=== PATIENT | female | born 1990 | race Caucasian/White ===

== ENCOUNTER → 2019-11-19 14:28 | Outpatient (CLI) | payer OTHER, SELFPAY ==
[2019-11-19 16:19] LABS: HCG Quantitative /Beta subunit 999.1 mIU/mL
== END ==
PROVIDERS: Referring Provider Specialist; Visit Provider Specialist
DX: O20.0 Threatened abortion (principal)
CPT/HCPCS: 84702

== ENCOUNTER → 2019-11-22 07:02 | Outpatient (CLI) | payer OTHER, SELFPAY ==
[2019-11-22 08:17] LABS: HCG Quantitative /Beta subunit 3744.9 mIU/mL
== END ==
PROVIDERS: Referring Provider Specialist; Visit Provider Specialist
DX: O20.0 Threatened abortion (principal)
CPT/HCPCS: 36415; 84702

== ENCOUNTER → 2019-12-01 11:58 | Outpatient (CLI) | payer BC, OTHER, SELFPAY ==
[2019-12-01 13:13] LABS: Add Manual Diff / Slide Review NO; Basophils Absolute Auto 0 /uL (0-100); Basophils Percent Auto 0.4 % (0-2); Eosinophils Absolute Auto 100 /uL (0-450); Eosinophils Percent Auto 0.9 % (2-4); Hematocrit 39.2 % (36-46); Hemoglobin 13.5 g/dL (12.0-16.0); Lymphocytes Absolute Auto 1700 /uL (1100-4500); Lymphocytes Percent Auto 19.8 % (25-40); Mean Corpuscular HGB Conc 34.6 % (30-36); Mean Corpuscular Hemoglobin 29.9 PG (26-34); Mean Corpuscular Volume 86.5 fL (80-100); Monocytes Absolute Auto 600 /uL (0-900); Monocytes Percent Auto 6.9 % (3-14); Neutrophils Absolute Auto 6200 /uL (1500-7000); Platelet Count 238 X10^3/uL (150-400); Red Blood Cell Count 4.53 X10^6/uL (4.0-5.2); Red Cell Distribution Width 12.5 % (11.6-14.8); White Blood Cell Count 8.6 X10^3/uL (4.5-11.0)
[2019-12-01 14:00] LABS: Appearance Urine UA CLEAR; Bilirubin Urine UA NEGATIVE (NEGATIVE); Color Urine UA YELLOW; Glucose Urine UA NEGATIVE (Negative); Ketones Urine UA NEGATIVE (NEGATIVE); Leukocyte Esterase Urine UA NEGATIVE (NEGATIVE); Nitrite Urine UA NEGATIVE (Negative); Occult Blood Urine UA NEGATIVE (Negative); Protein Urine UA NEGATIVE (Negative); Urobilinogen Urine UA 0.2 E.U./dL (0.2)
[2019-12-01 14:04] LABS: pH Urine UA 5.5 (4.5-8.0)
[2019-12-02 04:27] LABS: RPR Screen Non Reactive (Non Reactive)
[2019-12-02 06:08] LABS: Varicella IgG Antibody 198 index (Immune >165)
[2019-12-02 16:42] LABS: Hepatitis B Surface Antigen NEGATIVE s/c (NEGATIVE); Rubella Antibody IgG 20.2 IU/mL (>15)
[2019-12-02 16:56] LABS: Hep C Virus Ab w/Reflex Quant NEGATIVE s/c (NEGATIVE)
[2019-12-02 16:57] LABS: HIV 1 & 2 Ab/Ag 4th Gen Combo NEGATIVE (NEGATIVE)
== END ==
PROVIDERS: Referring Provider Specialist; Visit Provider Specialist
DX: Z34.01 Encounter for supervision of normal first pregnancy, first trimester (principal)
CPT/HCPCS: 36415; 80055; 81003; 86787; 86803; 86850; 86900; 86901; 87086; 87389

== ENCOUNTER → 2019-12-29 11:35 | Outpatient (CLI) | payer BC, OTHER, SELFPAY ==
[2019-12-29 17:07] LABS: Urine N gonorrhoeae NOT DETECTED
[2019-12-29 17:09] LABS: Urine Chlamydia NOT DETECTED
== END ==
PROVIDERS: Visit Provider Specialist
DX: Z34.81 Encounter for supervision of other normal pregnancy, first trimester (principal)
CPT/HCPCS: 87491; 87591

== ENCOUNTER → 2020-02-03 15:16 | Outpatient (CLI) | payer OTHER, SELFPAY ==
[2020-02-07 19:04] LABS: AFP, Serum 24.7 ng/mL (.); Calc Gestational Age Ultrasound (.); Estriol, Free 1.15 ng/mL (.); Inhibin A, Dimeric 146.22 pg/mL (.); Inhibin A, MoM 0.85 (.); Maternal Ethnicity Caucasian (.); Maternal Weight 147 lbs (.); Number of Fetuses No (.); OSBR Risk 1 IN 10000 (.); Results Report (.); Test Results *Screen Negative* (.); hCG, MoM 0.75 (.); hCG, Serum 32693 mIU/mL (.)
== END ==
PROVIDERS: Referring Provider Specialist; Visit Provider Specialist
DX: Z34.02 Encounter for supervision of normal first pregnancy, second trimester (principal); Z3A.16 16 weeks gestation of pregnancy
CPT/HCPCS: 36415; 82105; 82677; 84702; 86336

== ENCOUNTER → 2020-03-02 10:34 | Outpatient (CLI) | payer OTHER, SELFPAY ==
--- NOTE | 2020-03-02 10:35 | DI.US.S_ITS ---
PROCEDURE: US OB >= 14 WEEKS FETUS INDICATIONS: ANATOMY OUTSIDE/PRIOR DATING DATA: Last menstrual period (LMP): October 14, 2019. LMP-based estimated date of delivery (KARLA): July 20, 2020. First dating scan (date and location): December 01, 2019. Estimated date of delivery (KARLA) from first dating scan: July 24, 2020. TECHNIQUE: Real-time scanning was performed of the fetus, with image documentation and biometric measurements. Endovaginal scanning: Performed COMPARISON: [facility], , OB >= 14 WEEKS FETUS, 02/23/2020, 10:50. [facility], , OB <= 14 WEEKS FETUS, 12/29/2019, 11:45. [facility], , OB <= 14 WEEKS FETUS, 12/01/2019, 12:09. FINDINGS: General: A single living intrauterine gestation is present. Presentation: Transverse with head to the maternal left Placenta: Placental position is posterior, without previa. Amniotic fluid index: 11.8 cm, normal range is 5-24 cm. heart rate: 157 beats per minute. Maternal cervical canal: 4.8 cm long. Normal lower limit is 2.5 cm biometrics: Biparietal diameter: 19 weeks 4 days Head circumference: 19 weeks 5 days Abdominal circumference: 19 weeks 5 days Femur length: 19 weeks 3 days Estimated gestational age from initial scan: 19 weeks 3 days Composite gestational age from present scan: 19 weeks 5 days Estimated weight and percentile: 304 grams; 58th percentile Measurement variability for biometric dating: +/- 7 days from 14 weeks to 15 weeks 6 days gestation, +/- 10 days from 16 weeks to 21 weeks 6 days gestation, +/- 2 weeks from 22 weeks to 27 weeks 6 days gestation, +/- 3 weeks for 28 weeks gestation or later. weight reference: 4500 g or EFW >90/95% is considered macrosomia or large for gestational age. EFW <10% is small for gestational age. EFW 5% or less is considered intra-uterine growth restriction. Anatomic survey: Neuro: Ventricles are non-dilated at less than 10 mm. Cisterna magna is normal at 3-11 mm. Cerebellum is normal in size and morphology. Nuchal skin fold: Normal at less than 6 mm between 14-21 weeks gestational age. Face: Nose and lips, facial profile are normal. Spine: No evidence for spina bifida. Heart: 4-chambered heart is present, with normal right ventricular outflow tract. Left ventricular outflow tract is not well visualized. Diaphragm: Diaphragm is intact. Stomach: Left-sided stomach is present. Kidneys: No hydronephrosis. Normal is less than 5 mm in 2nd trimester, less than 7 mm in 3rd trimester. Cord: 3-vessel cord has orthotopic insertion. Bladder: Normal in size. Extremities: All 4 extremities identified. IMPRESSION: 1. Single living intrauterine with appropriate interval growth. 2. Suboptimal visualization of the left ventricular outflow tract which cannot be evaluated. Otherwise, normal anatomic survey. Dictated by: Perri La MD, PhD on 03/02/2020 at 12:47 Approved by: Perri La MD, PhD on 03/02/2020 at 12:51
== END ==
PROVIDERS: Referring Provider Specialist; Visit Provider Specialist
DX: Z34.02 Encounter for supervision of normal first pregnancy, second trimester (principal); Z3A.19 19 weeks gestation of pregnancy
CPT/HCPCS: 76811

== ENCOUNTER → 2020-04-10 09:32 | Outpatient (CLI) | payer OTHER, SELFPAY ==
[2020-04-10 11:10] LABS: Hematocrit 32.9 % (36-46); Hemoglobin 11.2 g/dL (12.0-16.0)
[2020-04-10 11:30] LABS: GTT (PREG) 1 Hour PP 50gm Dose 134 mg/dL (76-139)
== END ==
PROVIDERS: PCP Specialist; Referring Provider Specialist; Visit Provider Specialist
DX: Z34.82 Encounter for supervision of other normal pregnancy, second trimester (principal)
CPT/HCPCS: 36415; 82950; 85014; 85018

== ENCOUNTER 2020-05-16 13:50 | Emergency (ER) | payer OTHER, SELFPAY ==
[2020-05-16] VITALS (9 sets, daily range): BP systolic 120–149; BP diastolic 63–90; PULSE 85–113; RESP 22–27; TEMP 36.8; O2SAT 96–100
--- NOTE | 2020-05-16 14:16 | DI.CT.S_ITS ---
PROCEDURE: CT HEAD/BRAIN WO CON INDICATIONS: Code stroke RIGHT FACIAL DROOP TECHNIQUE: Noncontrast 4.5 mm thick angled axial sections acquired from the foramen magnum to the vertex, with coronal and sagittal reformats. For radiation dose reduction, the following was used: automated exposure control, adjustment of mA and/or kV according to patient size. COMPARISON: None. FINDINGS: Image quality: Excellent. CSF spaces: Basal cisterns are patent. No extra-axial fluid collections. Ventricles are normal in size and shape. Brain: No midline shift. No intracranial masses or hemorrhage. Van-white matter interface is normal. Skull and face: Calvarium and visualized facial bones are intact, without suspicious lesions. Sinuses: Visualized sinuses and mastoids are clear. IMPRESSION: Normal examination, no contraindication to administration of tPA. Findings immediately called to the emergency room physician caring for the patient, at 2:33 p.m. Dictated by: Carlos Ribera M.D. on 05/16/2020 at 14:34 Approved by: Carlos Ribera M.D. on 05/16/2020 at 14:35
--- NOTE | 2020-05-16 14:19 | ED_ITS ---
HPI - General Adult General Chief complaint: Neuro Symptoms/Deficit Stated complaint: 30 WKS NUMBNESS LEFT SIDE OF FACE Time Seen by Provider: 05/16/20 14:06 Source: patient Mode of arrival: Ambulatory Limitations: no limitations History of Present Illness HPI narrative: Patient is a 29-year-old female. at 30 weeks EGA without any abdominal urinary or complaints here for evaluation of tingling to the right side of her face. She states that the symptoms started approximately 2 hours ago. She states she was eating some yogurt when she noticed that she was having a hard time tasting on the right side of her face and also getting the spoon into her mouth. Last evening had right ear pain but that seems to have improved if not resolved. Her family member stated that it looked like she was drooping on the right side of her face and so she came to the emergency department. Code stroke was called secondary to the findings. Related Data Home Medications Medication Instructions Recorded Confirmed prenat.vits,jacoby,[id number] 1 tab PO DAILY 11/19/19 05/08/20 labetalol 100 mg tablet 100 mg PO BID 11/30/19 05/08/20 Previous Rx's Medication Instructions Recorded prednisone 60 mg PO DAILY 7 Days #21 tab 05/16/20 valacyclovir 1,000 mg PO TID 7 Days #21 tab 05/16/20 Allergies Allergy/AdvReac Type Severity Reaction Status Date / Time No Known Drug Allergies Allergy Verified 05/08/20 10:55 Review of Systems Constitutional Constitutional: Denies body ache(s), Denies chills, Denies fatigue, Denies fever(s), Denies frequent falls, Denies headache(s), Denies malaise and Denies weakness Eyes Eyes: Denies blurry vision, Denies change in vision and Denies diplopia ENT Ears, Nose, Mouth, and Throat: Denies vertigo, Denies dizziness, Denies dry mouth, Denies headache(s) and Denies sore throat Comments: Right-sided ear pain last night Cardiovascular Cardiovascular: Denies chest pain, Denies rapid heart rate, Denies irregular heart rhythm and Denies dyspnea Respiratory Respiratory: Denies cough and Denies dyspnea Gastrointestinal Gastrointestinal: Denies abdominal pain, Denies nausea and Denies vomiting Genitourinary Genitourinary: Denies urinary hesitancy, Denies urinary incontinence and Denies urinary urgency Genitourinary: Denies urinary incontinence, Denies urinary hesitancy, Denies urinary urgency and Denies vaginal discharge Musculoskeletal Musculoskeletal: Denies abnormal gait, Denies arthralgias, Denies back pain, Denies myalgias and Reports tingling (Right-sided face) Integumentary/Breasts Skin/Breast: Denies lesions and Denies rash Neurologic Neurologic: Denies abnormal speech, Denies abnormal gait, Denies burning sens ations, Denies confusion, Denies vertigo, Denies dizziness, Denies frequent falls, Denies headache(s), Denies lack of coordination, Reports localized weakness (Right-sided face), Reports tingling (Right-sided face) and Denies weakness Psychiatric Psychiatric: Denies anxiety, Denies confusion and Denies depression Endocrine Endocrine: Denies fatigue Hematologic/Lymphatic Hematologic/Lymphatic: Denies easy bleeding and Denies easy bruising Allergic/Immunologic Allergic/Immunologic: Denies urticaria Patient History Medical History Chicken pox (Resolved ~1994) Migraine (Acute) Surgical History (Updated 11/30/19 @ 10:33 by Leora Ceballos RN) [place] teeth extracted (Acute) Family History (Updated 11/30/19 @ 20:40 by Joyce Reyes) Father Stroke Hypertension Aorta aneurysm Mother No problems noted. 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 Smoking Status: Never smoker second hand exposure: No alcohol intake: former (pre- : occasional) substance use type: does not use Smoking Status: Never smoker Exam Initial Vital Signs Initial Vital Signs: Vital Signs Temperature 98.2 F 05/16/20 14:00 Pulse Rate 113 H 05/16/20 14:00 Respiratory Rate 22 05/16/20 14:00 Blood Pressure 149/90 H 05/16/20 14:00 Pulse Oximetry 100 05/16/20 14:00 Const General: cooperative, comfortable and well developed Limitations: mental status not altered HENMT Head: normal to inspection and normocephalic Ears: TM's normal bilaterally Nose: external nose normal Face and sinus: normal facial exam Eyes Pupils: PERRL Resp Effort & Inspection: normal respiratory effort Auscultation: clear to auscultation bilaterally Cardio Rate: tachycardic Rhythm: regular rhythm Pulses: radial pulses present GI Palpation: No tender Other: Gravid abdomen Skin Lesions: no lesions Rashes: no rashes Neuro General: patient alert, patient awake and patient oriented x3 Cognition: normal cognition Speech: speech normal Gait: normal gait Sensory Exam: no sensory deficits noted Coordination: [id number] test normal Extrem General: normal to inspection and capillary refill normal Psych Appearance: grossly normal and well kempt Scores GCS Melani coma scale eye opening: Spontaneous Melani coma scale verbal response: Orientated Melani coma scale motor response: Obey commands Melani coma scale total score: 15 NIH Stroke Scale Level of Conciousness: Alert, keenly responsive Ask month/age: Answers both questions correctly. Open/close eyes, close hand: Performs both tasks correctly Best gaze horizontal: Normal Visual xavier: No visual loss Facial palsy: Complete paralysis, absence of movement in the upper and lower face Left arm drift: No drift for full 10 sec Right arm drift: No drift for full 10 sec Left leg drift: No drift for full 5 sec Right leg drift: No drift for full 5 sec Limb ataxia: Absent Sensory on face/arms/legs: Normal, no sensory loss Best language: No aphasia, normal Dysarthria: Normal Extinction or inattention: No abnormality Total NIH Stroke scale score: 3 Course Orders Ordered: ED Orders 05/16/20 14:05 Basic Metabolic Panel Stat Complete Blood Count AUTO DIFF Stat 05/16/20 14:16 CT head/brain wo con Stat 05/16/20 14:33 EKG-12 Lead Stat 05/16/20 15:20 Urinalysis and Microscopic Stat 05/16/20 15:26 Lactate Dehydrogenase Stat Uric Acid Stat 05/16/20 17:02 Protein Creatinine Ratio Urine Stat Vital Signs Vital signs: Vital Signs - 8 hr 05/16/20 14:00 05/16/20 14:31 05/16/20 15:00 Temperature 98.2 F Pulse Rate 113 H 101 H 93 H Respiratory Rate 22 27 H 24 Blood Pressure 149/90 H 146/90 H Pulse Oximetry 100 97 96 05/16/20 15:18 05/16/20 15:19 05/16/20 15:50 Temperature Pulse Rate 101 H 101 H 98 H Respiratory Rate 24 22 Blood Pressure 130/72 Pulse Oximetry 97 96 97 05/16/20 15:52 05/16/20 16:00 05/16/20 16:30 Temperature Pulse Rate 96 H 93 H 85 Respiratory Rate Blood Pressure 124/63 125/64 120/71 Pulse Oximetry 96 97 97 Medical Decision Making Lab Data Lab results reviewed: Yes I reviewed the patient's lab results. Result diagrams: 05/16/20 14:05 05/16/20 14:05 Labs: Lab Results 05/16/20 05/16/20 05/16/20 Range/Units 14:05 14:05 15:26 WBC 8.2 (4.5-11.0) X10^3/uL RBC 3.92 L (4.0-5.2) X10^6/uL Hgb 11.5 L (12.0-16.0) g/dL Hct 33.3 L (36-46) % MCV 85.0 (80-100) fL MCH 29.3 (26-34) PG MCHC 34.4 (30-36) % RDW 13.4 (11.6-14.8) % Plt Count 216 (150-400) X10^3/uL Neut % (Auto) 74.9 (50-75) % Lymph % (Auto) 19.7 L (25-40) % [place] % (Auto) 4.7 (3-14) % Eos % (Auto) 0.4 L (2-4) % Baso % (Auto) 0.3 (0-2) % Neut # (Auto) 6200 (7562-9994) /uL Lymph # (Auto) 1600 (4083-2028) /uL [place] # (Auto) 400 (0-900) /uL Eos # (Auto) 0 (0-450) /uL Baso # (Auto) 0 (0-100) /uL Sodium 135 L (137-145) mmol/L Potassium 3.8 (3.4-5.1) mmol/L Chloride 107 (98-107) mmol/L Carbon Dioxide 22 (22-32) mmol/L BUN 11 (7-17) mg/dL Creatinine 0.44 L (0.52-1.04) mg/dL Estimated GFR > 60.0 (>60) mL/min BUN/Creatinine Ratio 25.0 H (6-22) Glucose 116 H (70-100) mg/dL Uric Acid (2.5-6.2) mg/dL Calcium 9.8 (8.4-10.2) mg/dL Lactate Dehydrogenase 332 (313-618) U/L U Random Total Protein (0-12) mg/dL Urine Creatinine mg/dL Protein/Creatinin Ratio GRAM/24H 05/16/20 05/16/20 Range/Units 15:26 17:02 WBC (4.5-11.0) X10^3/uL RBC (4.0-5.2) X10^6/uL Hgb (12.0-16.0) g/dL Hct (36-46) % MCV (80-100) fL MCH (26-34) PG MCHC (30-36) % RDW (11.6-14.8) % Plt Count (150-400) X10^3/uL Neut % (Auto) (50-75) % Lymph % (Auto) (25-40) % [place] % (Auto) (3-14) % Eos % (Auto) (2-4) % Baso % (Auto) (0-2) % Neut # (Auto) (0587-9890) /uL Lymph # (Auto) (5234-5305) /uL [place] # (Auto) (0-900) /uL Eos # (Auto) (0-450) /uL Baso # (Auto) (0-100) /uL Sodium (137-145) mmol/L Potassium (3.4-5.1) mmol/L Chloride (98-107) mmol/L Carbon Dioxide (22-32) mmol/L BUN (7-17) mg/dL Creatinine (0.52-1.04) mg/dL Estimated GFR (>60) mL/min BUN/Creatinine Ratio (6-22) Glucose (70-100) mg/dL Uric Acid 3.9 (2.5-6.2) mg/dL Calcium (8.4-10.2) mg/dL Lactate Dehydrogenase (313-618) U/L U Random Total Protein 17 H (0-12) mg/dL Urine Creatinine 18.4 mg/dL Protein/Creatinin Ratio 0.92 GRAM/24H Imaging Data CT scan - head: Radiologist's Impression: [address] [address] [address] Scan Report Signed Patient: Yumiko Carlin PMR#: [id number] : 1990Acct:[id number] Age/Sex: 29 / FDate of Service: 05/16/20 Loc: ED Accession Number: [id number] Procedure: CT head/brain wo con Ordering Provider: Fausto Oliver D.O. PROCEDURE: CT HEAD/BRAIN WO CON INDICATIONS: Code stroke RIGHT FACIAL DROOP TECHNIQUE: Noncontrast 4.5 mm thick angled axial sections acquired from the foramen magnum to the vertex, with coronal and sagittal reformats. For radiation dose reduction, the following was used: automated exposure control, adjustment of mA and/or kV according to patient size. COMPARISON: None. FINDINGS: Image quality: Excellent. CSF spaces: Basal cisterns are patent. No extra-axial fluid collections. Ventricles are normal in size and shape. Brain: No midline shift. No intracranial masses or hemorrhage. Van-white matter interface is normal. Skull and face: Calvarium and visualized facial bones are intact, without suspicious lesions. Sinuses: Visualized sinuses and mastoids are clear. IMPRESSION: Normal examination, no contraindication to administration of tPA. Findings immediately called to the emergency room physician caring for the justin jackson, at 2:33 p.m. Dictated by: Carlos Ribera M.D. on 05/16/2020 at 14:34 Approved by: Carlos Ribera M.D. on 05/16/2020 at 14:35 ECG Data Attestation: I personally reviewed and interpreted this ECG as follows: Prior ECG tracings: not available for review Interpretation: Sinus rhythm Ventricular rate of 97 Normal axis Normal QRS Normal QTC No ST T wave changes MDM Narrative Medical decision making narrative: Do a strong suspicion that the patient's symptoms are related to Elliott's palsy and not a CVA. During her time here in the emergency department her symptoms did seem to improve somewhat however she was still having some problems closing the right eye and also puffing out the right side of her cheek. I did discuss the case with Dr. callejas who is on-call for Ob who recommended starting the patient on steroids as well as the acyclovir. Patient already has a follow-up the attending of next week with her OB provider. Patient's blood pressure was elevated upon arrival with this did improve a suspected this was related to the situation and not preeclampsia. Patient is already on labetalol. She has already had her glucose test. Patient was given return precautions and follow-up instructions. She expressed understanding and agreement. Discharge Plan Departure Patient Disposition: Home Clinical Impression: Elliott's palsy Discharge Date/Time: 05/16/20 17:43 Instructions: Prednisolone Improves Recovery From Elliott's Palsy, Elliott's Palsy (Alternative Therapy), Elliott Palsy Activity Restrictions/Additional Instructions: Recommend you continue all of your medications as directed and keep all of your scheduled medical appointments. Prescriptions were electronically transmitted to [facility]. Recommend you take them as directed. Return to the emergency department for any new or worsening symptoms Prescriptions: New prednisone 20 mg tablet 60 mg PO DAILY 7 Days Qty: 21 RF: 0 valacyclovir 1 gram tablet 1,000 mg PO TID 7 Days Qty: 21 RF: 0 No Action prenat.vits,jacoby,[id number] Tablet 1 tab PO DAILY RF: 0 labetalol 100 mg tablet 100 mg PO BID RF: 0 Referrals: Naomy Perkins MD [Primary Care Provider] -
[2020-05-16 15:13] LABS: Add Manual Diff / Slide Review NO; Basophils Absolute Auto 0 /uL (0-100); Basophils Percent Auto 0.3 % (0-2); Eosinophils Absolute Auto 0 /uL (0-450); Eosinophils Percent Auto 0.4 % (2-4); Hematocrit 33.3 % (36-46); Hemoglobin 11.5 g/dL (12.0-16.0); Lymphocytes Absolute Auto 1600 /uL (1100-4500); Lymphocytes Percent Auto 19.7 % (25-40); Mean Corpuscular HGB Conc 34.4 % (30-36); Mean Corpuscular Hemoglobin 29.3 PG (26-34); Monocytes Absolute Auto 400 /uL (0-900); Monocytes Percent Auto 4.7 % (3-14); Neutrophils Absolute Auto 6200 /uL (1500-7000); Neutrophils Percent Auto 74.9 % (50-75); Platelet Count 216 X10^3/uL (150-400); Red Blood Cell Count 3.92 X10^6/uL (4.0-5.2); Red Cell Distribution Width 13.4 % (11.6-14.8); White Blood Cell Count 8.2 X10^3/uL (4.5-11.0)
[2020-05-16 15:27] LABS: Blood Urea Nitrogen 11 mg/dL (7-17); Calcium 9.8 mg/dL (8.4-10.2); Carbon Dioxide 22 mmol/L (22-32); Chloride 107 mmol/L (98-107); Estimated Glomerular Filt Rate > 60.0 mL/min (>60); Glucose 116 mg/dL (70-100); HEMOLYSIS < 15 (0-50); Potassium 3.8 mmol/L (3.4-5.1); Sodium 135 mmol/L (137-145)
[2020-05-16 15:43] LABS: Lactate Dehydrogenase 332 U/L (313-618)
[2020-05-16 15:44] LABS: Uric Acid 3.9 mg/dL (2.5-6.2)
[2020-05-16 17:23] LABS: Creatinine Urine Random 18.4 mg/dL; Protein (Total) Urine Random 17 mg/dL (0-12); Protein Creatinine Ratio Urine 0.92 GRAM/24H
== END 2020-05-16 17:43 | disposition home or self-care (01) ==
PROVIDERS: Obstetrics & Gynecology; Emergency Provider Emergency Medicine; PCP Specialist
DX: G51.0 Bell's palsy (principal); H92.01 Otalgia, right ear; R07.9 Chest pain, unspecified
CPT/HCPCS: 36415; 70450; 80048; 82570; 83615; 84156; 84550; 85025; 93005; 93010; 99284

== ENCOUNTER 2020-05-17 14:23 | Outpatient (CLI) | payer OTHER, SELFPAY ==
--- NOTE | 2020-05-18 07:02 | PM.OBTRLD ---
Visit Information Visit Information Date of evaluation: 05/17/20 Primary OB Provider: Naomy Perkins On-call OB Provider: Olimpia Ray Reason for Evaluation: Yes non-stress test non-stress test reason: other (Elliott's Palsy) [facility] Medical History (Updated 05/16/20 @ 17:36 by Fausto Oliver DO) Chicken pox (Resolved ~1994) Migraine (Acute) Surgical History (Updated 11/30/19 @ 10:33 by Leora Ceballos RN) [place] teeth extracted (Acute) Family History (Updated 11/30/19 @ 20:40 by Joyce Reyes) Father Stroke Hypertension Aorta aneurysm Mother No problems noted. 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 Perkins in 5 days [facility]'s OB Disposition: home
== END 2020-05-17 15:25 | disposition home or self-care (01) ==
LOC: LABOR 15:03 → OB 05-18 14:49
PROVIDERS: Referring Provider Obstetrics & Gynecology; Visit Provider Obstetrics & Gynecology
DX: O26.893 Other specified pregnancy related conditions, third trimester (principal); G51.0 Bell's palsy; Z3A.30 30 weeks gestation of pregnancy
CPT/HCPCS: 59025; G0378; G0379

== ENCOUNTER → 2020-06-26 08:54 | Outpatient (CLI) | payer OTHER, SELFPAY ==
[2020-06-27 09:00] LABS: Strep Grp B PCR NEG for Grp B Strep
== END ==
PROVIDERS: Visit Provider Specialist
DX: Z34.03 Encounter for supervision of normal first pregnancy, third trimester (principal); Z3A.36 36 weeks gestation of pregnancy
CPT/HCPCS: 87653

== ENCOUNTER 2020-07-03 11:07 | Outpatient (CLI) | payer OTHER, SELFPAY ==
--- NOTE | 2020-07-03 11:42 | PM.OBTRLD ---
Visit Information Visit Information Date of evaluation: 07/03/20 Primary OB Provider: Naomy Perkins Reason for Evaluation: Yes non-stress test non-stress test reason: hypertension/pre-eclampsia Comments/Additional reasons for admission: Chronic hypertension on labetalol Vital Signs Vital Signs: Blood pressure 120/77, pulse 98, temperature 36.6? [facility] Medical History (Updated 07/03/20 @ 11:43 by Naomy Perkins MD) Chicken pox (~1994) Migraine Surgical History (Updated 11/30/19 @ 10:33 by Leora Ceballos RN) [place] teeth extracted Family History (Updated 11/30/19 @ 20:40 by Joyce Reyes) Father Stroke Hypertension Aorta aneurysm Mother No problems noted. 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 OB Disposition: home
== END 2020-07-03 11:50 | disposition home or self-care (01) ==
LOC: OB 07-04 09:28
PROVIDERS: Referring Provider Specialist; Visit Provider Specialist
DX: O10.913 Unspecified pre-existing hypertension complicating pregnancy, third trimester (principal); Z3A.37 37 weeks gestation of pregnancy
CPT/HCPCS: 59025; G0378; G0379

== ENCOUNTER 2020-07-10 10:02 | Outpatient (CLI) | payer OTHER, SELFPAY ==
--- NOTE | 2020-07-10 12:55 | P.TNLD_ITS ---
Visit Information Visit Information Date of evaluation: 07/10/20 Primary OB Provider: Naomy Perkins Reason for Evaluation: Yes non-stress test non-stress test reason: hypertension/pre-eclampsia [facility] Medical History (Updated 07/03/20 @ 11:43 by Naomy Perkins MD) Chicken pox (~1994) Migraine Surgical History (Updated 11/30/19 @ 10:33 by Leora Ceballos RN) [place] teeth extracted Family History (Updated 11/30/19 @ 20:40 by Joyce Reyes) Father Stroke Hypertension Aorta aneurysm Mother No problems noted. 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
== END 2020-07-10 11:25 | disposition home or self-care (01) ==
LOC: LABOR 10:36 → OB 15:41
PROVIDERS: Referring Provider Specialist; Visit Provider Specialist
DX: O10.913 Unspecified pre-existing hypertension complicating pregnancy, third trimester (principal); Z3A.38 38 weeks gestation of pregnancy
CPT/HCPCS: 59025; G0378; G0379

== ENCOUNTER 2020-07-17 10:39 | Outpatient (CLI) | payer OTHER, SELFPAY | END 2020-07-17 11:16 | disposition home or self-care (01) | LOC: LABOR 11:07 → OB 07-18 09:12 | PROVIDERS: Referring Provider Specialist; Visit Provider Specialist | DX: O24.419 Gestational diabetes mellitus in pregnancy, unspecified control (principal); Z3A.39 39 weeks gestation of pregnancy | CPT/HCPCS: 59025; G0378; G0379 ==

== ENCOUNTER 2020-07-18 10:51 | Observation (INO) | payer OTHER, SELFPAY ==
--- NOTE | 2020-07-18 13:07 | P.TNLD_ITS ---
Visit Information Visit Information Date of evaluation: 07/18/20 Primary OB Provider: Naomy Perkins On-call OB Provider: Carmencita Castillo Reason for Evaluation: Yes non-stress test Comments/Additional reasons for admission: Patient is a @39+5 presenting for r/o PROM with since gush of more mucus than normal. Rare ctx, +FM, no VB, no PIH complaints. Vital Signs Vital Signs: 122/83, HR 102 PFSH Medical History Chicken pox (~1994) Migraine Surgical History [place] teeth extracted Family History Father Stroke Hypertension Aorta aneurysm Mother No problems noted. 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 OB Disposition: home
== END 2020-07-18 13:18 | disposition home or self-care (01) ==
PROVIDERS: Admitting Provider Specialist; Referring Provider Specialist; Visit Provider Specialist
DX: O13.3 Gestational [pregnancy-induced] hypertension without significant proteinuria, third trimester (principal); N89.8 Other specified noninflammatory disorders of vagina; Z3A.39 39 weeks gestation of pregnancy
CPT/HCPCS: 59025; 59050; 84112; G0378; G0379

== ENCOUNTER 2020-07-22 09:57 | Outpatient (CLI) | payer OTHER, SELFPAY ==
--- NOTE | 2020-07-22 10:46 | P.TNLD_ITS ---
Visit Information Visit Information Date of evaluation: 07/22/20 Primary OB Provider: Naomy Perkins Reason for Evaluation: Yes non-stress test non-stress test reason: hypertension/pre-eclampsia Vital Signs Vital Signs: Blood pressure 115/69, temperature 36.3?, pulse 93 PFSH Medical History (Updated 07/22/20 @ 10:47 by Naomy Perkins MD) Chicken pox (~1994) Migraine Surgical History [place] teeth extracted Family History Father Stroke Hypertension Aorta aneurysm Mother No problems noted. 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 Follow-up in 5 days. OB Disposition: home
== END 2020-07-22 11:07 | disposition home or self-care (01) ==
LOC: OB 07-24 12:05
PROVIDERS: Referring Provider Specialist; Visit Provider Specialist
DX: O48.0 Post-term pregnancy (principal); O10.913 Unspecified pre-existing hypertension complicating pregnancy, third trimester; Z3A.40 40 weeks gestation of pregnancy
CPT/HCPCS: 59025; G0378; G0379

== ENCOUNTER 2020-07-25 10:23 | Observation (INO) | payer OTHER, SELFPAY ==
--- NOTE | 2020-07-25 11:54 | DI.US.S_ITS ---
PROCEDURE: US OB BIOPHYSICAL PROFILE INDICATIONS: DECREASED MOVEMENT OUTSIDE/PRIOR DATING DATA: Last menstrual period (LMP): 10/14/19. LMP-based estimated date of delivery (KARLA): 07/20/20 . First dating scan (date and location): 12/01/19 Estimated date of delivery (KARLA) from first dating scan: 07/24/20 . TECHNIQUE: Real-time scanning was performed of the fetus for biophysical profile, with image documentation. Color and pulse Doppler interrogation was also performed of the umbilical artery near its insertion into the placenta. Endovaginal scanning: Not performed COMPARISON: [facility], , US OB >= 14 WEEKS FETUS, 07/17/2020, 10:33. [facility], US OB >= 14 WEEKS FETUS, 07/10/2020, 9:50. [facility], US OB >= 14 WEEKS FETUS, 07/03/2020, 10:49. [facility], OB >= 14 WEEKS FETUS, 04/24/2020, 11:12. [facility], US OB >= 14 WEEKS FETUS, 03/02/2020, 11:02. [facility], US OB >= 14 WEEKS FETUS, 02/23/2020, 10:50. [facility], US OB <= 14 WEEKS FETUS, 12/29/2019, 11:45. [facility], US OB <= 14 WEEKS FETUS, 12/01/2019, 12:09. FINDINGS: General: A single living intrauterine gestation is present. Presentation: Vertex. Placenta: Placental position is anterior/left , without previa. Amniotic fluid index: 8.5 cm, normal range is 5-24 cm. Largest pocket measures 3.4 cm heart rate: 140 beats per minute. Estimated gestational age from initial scan: 40 weeks 1 day . Biophysical profile: Tone: 2 points. Movement: 2 points. Respiration: 2 points. Largest pocket of fluid: 2 points. IMPRESSION: Single living intrauterine fetus in vertex presentation Biophysical profile 03/04 as above Normal KRISTAN Dictated by: Terrence Aiken M.D. on 07/25/2020 at 14:15 Approved by: Terrence Aiken M.D. on 07/25/2020 at 14:17
--- NOTE | 2020-07-25 13:09 | PM.OBTRLD ---
Visit Information Visit Information Date of evaluation: 07/25/20 Primary OB Provider: Naomy Perkins On-call OB Provider: Carmencita Castillo Reason for Evaluation: Yes non-stress test Comments/Additional reasons for admission: This patient is a 30-year-old at 40 weeks 5 days with chronic hypertension well managed on p.o. labetalol, presenting to rule out labor. Patient has a contractions as often as every 5 minutes overnight, some mucousy bloody show, decreased movement that has now resolved, no loss of fluid. No PIH complaints. Vital Signs Vital Signs: 120s/80s, HR 80s-90s PFSH Medical History Chicken pox (~1994) Migraine Surgical History [place] teeth extracted Family History Father Stroke Hypertension Aorta aneurysm Mother No problems noted. 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 Smoking Status: Never smoker second hand exposure: No alcohol intake: former (pre- : occasional) substance use type: does not use Review of Systems Constitutional Constitutional: Reports system reviewed and no additional complaints, except as documented Evaluation Evaluation Baseline heart rate: 140 Variability: Moderate (11-25) monitor accelerations: Present monitor decelerations: Absent Contraction Frequency (minutes): 7 Category of Tracing: Reactive Status: Category l Cervical dilation (cm): 1 Cervical effacement (%): 70 station: -2 (Posterior, mild mucousy bloody show) Diagnosis, Plan/Disposition Plan/Disposition Plan: Patient is status post 8 BPP, reassuring status, patient in latent labor. Precautions discussed, patient offered recheck in 2 hours versus discharge home with expectant management, opted for discharge home. Precautions stressed, patient has scheduled follow-up tomorrow with primary provider. OB Disposition: home
== END 2020-07-25 13:15 | disposition home or self-care (01) ==
PROVIDERS: Admitting Provider Specialist; Referring Provider Specialist; Visit Provider Specialist
DX: O48.0 Post-term pregnancy (principal); O10.913 Unspecified pre-existing hypertension complicating pregnancy, third trimester; Z3A.40 40 weeks gestation of pregnancy
CPT/HCPCS: 59025; 59050; 76819; G0378; G0379

== ENCOUNTER 2020-07-26 00:27 | Observation (INO) | payer OTHER, SELFPAY ==
[2020-07-26] MEDS: MORPHINE 4 MG/ML INJ 5 MG IM (03:05)
[2020-07-26] MEDS: ZOLPIDEM 5 MG TABLET PO (03:06)
== END 2020-07-26 03:14 | disposition home or self-care (01) ==
PROVIDERS: Admitting Provider Obstetrics & Gynecology; Referring Provider Specialist; Visit Provider Obstetrics & Gynecology
DX: O48.0 Post-term pregnancy (principal); Z3A.40 40 weeks gestation of pregnancy
CPT/HCPCS: 59025; 96372; G0378; G0379; J2270

== ENCOUNTER 2020-07-26 06:23 | Inpatient (IN) | payer OTHER, SELFPAY ==
[2020-07-26] MEDS: ONDANSETRON 4 MG/2 ML INJ IV (06:50)
[2020-07-26] MEDS: MORPHINE 10 MG/ML INJ 5 MG IV (06:50)
[2020-07-26] MEDS: FENT 2MCG/ML BUPIV 0.125% EPI 200 MCG/100 ML PLAST..BAG 8 MCG EPIDURAL (08:05)
[2020-07-26] MEDS: LACTATED RINGERS 1,000 ML 100 ML IV ×3 (08:10→19:27)
[2020-07-26 08:20] LABS: Add Manual Diff / Slide Review NO; Basophils Absolute Auto 0 /uL (0-100); Basophils Percent Auto 0.3 % (0-2); Eosinophils Absolute Auto 0 /uL (0-450); Eosinophils Percent Auto 0.1 % (2-4); Hematocrit 36.6 % (36-46); Hemoglobin 12.2 g/dL (12.0-16.0); Lymphocytes Absolute Auto 1500 /uL (1100-4500); Mean Corpuscular HGB Conc 33.5 % (30-36); Mean Corpuscular Hemoglobin 28.5 PG (26-34); Mean Corpuscular Volume 85.1 fL (80-100); Monocytes Absolute Auto 500 /uL (0-900); Monocytes Percent Auto 4.6 % (3-14); Neutrophils Absolute Auto 8600 /uL (1500-7000); Platelet Count 140 X10^3/uL (150-400); Red Cell Distribution Width 14.3 % (11.6-14.8); White Blood Cell Count 10.6 X10^3/uL (4.5-11.0)
[2020-07-26 08:23] LABS: COVID19 -Nasal RAPID Negative (Negative)
--- NOTE | 2020-07-26 09:22 | PM.OBHP.1 ---
OB HPI Date/Time Date of admission: 07/26/20 Date Patient Seen: 07/26/20 Time Patient Seen: 09:23 History of Present Condition Chief complaint: NST : 1 Para: 0 Estimated Date of Delivery: 07/20/20 Estimated Gestational Age (weeks): 40 Narrative: Yumiko Carlin is a 30 year old female admitted in early labor History of Present care: good care, initiated at week # (6), number of visits (15) and pounds weight gain (27) Dating criteria: LMP confirmed by 1st trimester US Ultrasounds: normal mid trimester US Medical complications: cardiovascular (Chronic hypertension well controlled throughout the ) Preadmission Labs Blood type: B (+) positive -: Antibody screen: negative, GBS status: negative, HBsAG: negative, HIV: negative and RPR/VDLR: negative -: Chlamydia screen: not detected and Gonorrhea screen: not detected -: Rubella: immune and Varicella: immune HCAB: negative Quad screen: Normal 1 hr GTT: 134 Evaluation Evaluation Baseline heart rate: 130 Variability: Moderate (11-25) monitor accelerations: Present monitor decelerations: Absent Contraction Frequency (minutes): 2 Uterine Contraction Intensity: Strong/Firm Category of Tracing: Reactive Cervical dilation (cm): 1 Cervical effacement (%): 100 station: 0 Laboratory results: Laboratory Tests 07/26/20 07/26/20 07/26/20 06:20 06:20 06:40 WBC 10.6 RBC 4.30 Hgb 12.2 Hct 36.6 MCV 85.1 MCH 28.5 MCHC 33.5 RDW 14.3 Plt Count 140 L Neut % (Auto) 81.0 H Lymph % (Auto) 14.0 L [place] % (Auto) 4.6 Eos % (Auto) 0.1 L Baso % (Auto) 0.3 Neut # (Auto) 8600 H Lymph # (Auto) 1500 [place] # (Auto) 500 Eos # (Auto) 0 Baso # (Auto) 0 COVID-19 PCR Negative Blood Type B Positive Antibody Screen Negative PFSH Medical History Chicken pox (~1994) Migraine Surgical History [place] teeth extracted Family History Father Stroke Hypertension Aorta aneurysm Mother No problems noted. 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 Good movement. No leakage of fluid. ROS: Yes All systems reviewed with the patient and are negative except as otherwise documented Exam Vital Signs (past 8 hours): Blood pressure 121/74, pulse 109, temperature 36.5? Narrative Exam Narrative: HEENT exam within normal limits. Lungs are clear to auscultation percussion. Heart is regular rate and rhythm no S3-S4 murmurs. Abdomen is gravid. Fetus is vertex. Extremities without edema and nontender. Objective Labs Result Diagrams: 07/26/20 06:20 Labs: Laboratory Results - last 24 hr 07/26/20 07/26/20 07/26/20 06:20 06:20 06:40 WBC 10.6 RBC 4.30 Hgb 12.2 Hct 36.6 MCV 85.1 MCH 28.5 MCHC 33.5 RDW 14.3 Plt Count 140 L Neut % (Auto) 81.0 H Lymph % (Auto) 14.0 L [place] % (Auto) 4.6 Eos % (Auto) 0.1 L Baso % (Auto) 0.3 Neut # (Auto) 8600 H Lymph # (Auto) 1500 [place] # (Auto) 500 Eos # (Auto) 0 Baso # (Auto) 0 COVID-19 PCR Negative Blood Type B Positive Antibody Screen Negative Assessment and Plan Assessment and Plan Assessment and Plan narrative: 40 week gestation admitted in early labor. Patient is getting an epidural for pain control.
[2020-07-26 10:20] VITALS: BP 156/79
[2020-07-26] MEDS: OXYTOCIN PREMIX 30 UNIT/500 ML PLAST..BAG IV (15:29)
[2020-07-26 20:50] VITALS: BP 177/94; PULSE 115
[2020-07-26] MEDS: LABETALOL 100 MG TABLET PO (20:50)
[2020-07-26 20:51] VITALS: TEMP 38.7
[2020-07-26] MEDS: ACETAMINOPHEN 325 MG TABLET 650 MG PO (20:51)
--- NOTE | 2020-07-26 22:14 | PM.OBPRVD ---
Events: Labor Augmentation Labor & Delivery Delivery date: 07/26/20 Intrapartal events: Febrile (To 100.7 the last hour of pushing) Delivery augmentation: pitocin Delivery monitor: external FHT, external uterine and internal uterine Route of delivery: L&D Laceration Description: Vaginal - 1st Degree and Labial (Right labial minora first-degree) Delivery repair: chromic (3 0 and 4 0) Estimated blood loss (mL): 150 Anesthesia Type: Epidural Narrative: Patient arrived on Labor and delivery in active labor. She received an epidural catheter for pain control. She had slower progress in labor so she was begun on Pitocin augmentation. A internal toco was placed to document contraction strength. Pitocin was increased to a total of 7 milliunits. The patient became complete and pushing. The patient's temperature gradually increased to 100.7. She was given p.o. Tylenol. heart tones category 1 to category 2 throughout labor. Patient had a spontaneous delivery over an intact perineum. The viable female infant was placed on maternal abdomen. After the cord stopped pulsating the cord was clamped, cut, and cord bloods obtained. The placenta delivered spontaneously, intact, with 3 vessels. There were no cervical tears. A first-degree vaginal tear was repaired with 3 0 chromic suture. A right labial tear was repaired with 4-0 chromic suture. Both mother doing well. [place] Baby 1: gender: Female Presentation: vertex Position: Left Occiput Posterior Placenta delivery description: Spontaneous Cord Vessel Description: 3 Vessels score (1 min): 8 score (5 min): 9 Plan for aftercare: Routine care
[2020-07-26] MEDS: LANOLIN OINT 7 GM 1 APPLIC TOP (23:53)
[2020-07-26] MEDS: DERMOPLAST SPRAY 20% 60 ML 1 SPRAY TOP (23:53)
[2020-07-27] MEDS: IBUPROFEN 600 MG TABLET PO ×3 (00:29→13:43)
[2020-07-27 06:39] LABS: Add Manual Diff / Slide Review NO; Basophils Absolute Auto 100 /uL (0-100); Basophils Percent Auto 0.4 % (0-2); Eosinophils Absolute Auto 0 /uL (0-450); Eosinophils Percent Auto 0.1 % (2-4); Hematocrit 31.7 % (36-46); Hemoglobin 10.5 g/dL (12.0-16.0); Lymphocytes Absolute Auto 1800 /uL (1100-4500); Lymphocytes Percent Auto 10.7 % (25-40); Mean Corpuscular HGB Conc 33.2 % (30-36); Mean Corpuscular Hemoglobin 28.7 PG (26-34); Mean Corpuscular Volume 86.4 fL (80-100); Monocytes Absolute Auto 1000 /uL (0-900); Monocytes Percent Auto 6.1 % (3-14); Neutrophils Absolute Auto 14100 /uL (1500-7000); Neutrophils Percent Auto 82.7 % (50-75); Platelet Count 120 X10^3/uL (150-400); Red Blood Cell Count 3.67 X10^6/uL (4.0-5.2); Red Cell Distribution Width 14.9 % (11.6-14.8)
[2020-07-27 07:52] VITALS: BP 148/89
[2020-07-27] MEDS: ACETAMINOPHEN 325 MG TABLET 650 MG PO (07:52)
[2020-07-27] MEDS: LABETALOL 100 MG TABLET PO (07:52)
--- NOTE | 2020-07-27 13:35 | PM.OBDS.1 ---
Discharge Providers Provider Date of admission: 07/26/20 06:23 Discharge Date: 07/27/20 Consults: 07/26/20 07:33 Consult to Anesthesiology Urgent Comment: Consulting Provider: Anesthesiologist Reason for consultation: Epidural Has provider been notified: No 07/27/20 22:12 Consult to Plant Sciences Professor Routine Comment: Discharge provider: Naomy Perkins MD Summary Hospital Course Date Patient Seen: 07/27/20 Time Patient Seen: 13:36 Procedures: Epidural catheter, Pitocin augmentation of labor, spontaneous vaginal delivery, repair of first-degree vaginal and labial tear Hospital Course: Patient arrived on Labor and delivery in early labor. She received an epidural catheter for pain control. She had a spontaneous vaginal delivery with first-degree vaginal and labial tear repairs. Patient denies headaches, scotomata, epigastric pain. Patient is urinating and ambulating well. No pain. Bleeding is appropriate. Patient is requesting early discharge. Peripartum Data Delivery Method: Natural Vaginal Laceration Description: Vaginal - 1st Degree and Labial (Right) Procedures: Epidural catheter, Pitocin augmentation of labor, spontaneous vaginal delivery, repair of first-degree vaginal and labial tears complications: none [place] 1: Gender: Female Disposition of : home Discharge Diagnosis (1) Vaginal delivery: Status: Acute (2) Chronic hypertension: Status: Acute Status at Discharge Cognitive/behavioral status at discharge: oriented Functional status at discharge: independent ambulation Overall status at discharge: patient is progressing back to baseline Time Spent with Patient Time attestation: Total time spent providing and/or coordinating discharge services: Time spent: Less than 30 minutes Objective Labs Result Diagrams: 07/27/20 06:22 Labs: Laboratory Results - last 24 hr 07/27/20 06:22 WBC 17.0 H D RBC 3.67 L Hgb 10.5 L Hct 31.7 L MCV 86.4 MCH 28.7 MCHC 33.2 RDW 14.9 H Plt Count 120 L Neut % (Auto) 82.7 H Lymph % (Auto) 10.7 L [place] % (Auto) 6.1 Eos % (Auto) 0.1 L Baso % (Auto) 0.4 Neut # (Auto) 74707 H Lymph # (Auto) 1800 [place] # (Auto) 1000 H Eos # (Auto) 0 Baso # (Auto) 100 Exam Vital Signs (past 8 hours): Temperature 97.4?, pulse of 91, 1 elevated blood pressure at 148/89,-repeat 131/85 07/27/20 07:52 Blood Pressure 148/89 H Narrative Exam Narrative: Abdomen is soft, nontender. Uterus is firm, at U, nontender. Mild lochia. Extremities with trace edema and nontender. Patient is Rh positive, rubella immune, received the Tdap in the 3rd trimester. Discharge Plan Discharge Plan Patient Disposition: Home Discharge orders & Medications Prescriptions: Continued prenat.vits,jacoby,[id number]-heeqa Tablet 1 tab PO DAILY RF: 0 labetalol 100 mg tablet 100 mg PO BID Qty: 60 RF: 3 Follow up/Referrals: Naomy Perkins MD [Physician] - (please follow up w/ Dr. Perkins on , @ 11am for your appt.) Diet/Activity/Treatments Diet: Regular Activity: Nothing in vagina for 6 weeks Skin/Wound/Dressing Care Report to your healthcare provider any signs of infection, such as:: chills, fever and increased pain Visit Report/Discharge Packet Stand Alone Forms: Discharge: Care
[2020-07-27 14:26] VITALS: BP 135/81; PULSE 91; TEMP 36.3
== END 2020-07-27 16:39 | disposition home or self-care (01) | DRG 807 ==
PROVIDERS: Specialist; Admitting Provider Obstetrics & Gynecology; Referring Provider Obstetrics & Gynecology; Visit Provider Obstetrics & Gynecology
DX: O10.92 Unspecified pre-existing hypertension complicating childbirth (principal); Z37.0 Single live birth; Z3A.40 40 weeks gestation of pregnancy; O48.0 Post-term pregnancy; O70.0 First degree perineal laceration during delivery; Z20.828 Contact with and (suspected) exposure to other viral communicable diseases
CPT/HCPCS: 01967; 36415; 59025; 59050; 59400; 76815; 85025; 86850; 86900; 86901; 87635; 96372; G0378; G0379; J2270; J2405; J2590

== ENCOUNTER → 2020-11-02 12:09 | Outpatient (CLI) | payer OTHER, SELFPAY ==
[2020-11-02] MEDS: COVID-19 VACC, Ad26(JANSSEN)/PF 0.5 ML IM (12:26)
== END ==
PROVIDERS: Visit Provider Internal Medicine
DX: Z23 Encounter for immunization (principal)
CPT/HCPCS: 0031A; 91303

== ENCOUNTER → 2021-03-05 11:34 | Outpatient (CLI) | payer OTHER, SELFPAY ==
[2021-03-05 12:03] LABS: Add Manual Diff / Slide Review NO; Basophils Absolute Auto 0 /uL (0-100); Basophils Percent Auto 0.5 % (0-2); Eosinophils Absolute Auto 100 /uL (0-450); Hemoglobin 14.4 g/dL (12.0-16.0); Lymphocytes Absolute Auto 2100 /uL (1100-4500); Lymphocytes Percent Auto 24.3 % (25-40); Mean Corpuscular HGB Conc 34.4 % (30-36); Mean Corpuscular Hemoglobin 29.6 PG (26-34); Mean Corpuscular Volume 85.9 fL (80-100); Monocytes Absolute Auto 500 /uL (0-900); Monocytes Percent Auto 5.9 % (3-14); Neutrophils Absolute Auto 5800 /uL (1500-7000); Neutrophils Percent Auto 68.3 % (50-75); Platelet Count 235 X10^3/uL (150-400); Red Blood Cell Count 4.89 X10^6/uL (4.0-5.2); Red Cell Distribution Width 12.3 % (11.6-14.8); White Blood Cell Count 8.5 X10^3/uL (4.5-11.0)
[2021-03-05 12:15] LABS: Alanine Aminotransferase 14 IU/L (<35); Albumin 4.5 g/dL (3.5-5.0); Albumin Globulin Ratio 1.2 (1.0-2.8); Alkaline Phosphatase 86 U/L (38-126); Aspartate Aminotransferase 22 IU/L (14-36); BUN Creatinine Ratio 23.6 (6-22); Bilirubin Total 0.4 mg/dL (0.2-1.3); Blood Urea Nitrogen 13 mg/dL (7-17); Calcium 9.9 mg/dL (8.4-10.2); Carbon Dioxide 24 mmol/L (22-32); Chloride 106 mmol/L (98-107); Estimated Glomerular Filt Rate > 60.0 mL/min (>60); Globulin 3.9 g/dL (1.7-4.1); Glucose 92 mg/dL (70-100); HEMOLYSIS < 15 (0-50); Potassium 4.1 mmol/L (3.4-5.1); Sodium 138 mmol/L (137-145); Total Protein 8.4 g/dL (6.3-8.2)
== END ==
PROVIDERS: PCP Registered Nurse; Referring Provider Registered Nurse; Visit Provider Registered Nurse
DX: I10 Essential (primary) hypertension (principal); Z79.899 Other long term (current) drug therapy; G43.909 Migraine, unspecified, not intractable, without status migrainosus
CPT/HCPCS: 36415; 80053; 85025

== ENCOUNTER → 2021-05-28 12:40 | Outpatient (CLI) | payer OTHER, SELFPAY ==
--- NOTE | 2021-05-28 12:42 | DI.US.S_ITS ---
PROCEDURE: US OB <= 14 WK FETUS ADD GEST INDICATIONS: DATING OUTSIDE/PRIOR DATING DATA: Last menstrual period (LMP): 04/03/2021. LMP-based estimated date of delivery (KARLA): 01/08/2022. First dating scan (date and location): This exam. Estimated date of delivery (KARLA) from first dating scan: 01/14/2022. TECHNIQUE: Real-time scanning was performed of the fetuses and maternal pelvic organs, with image documentation. Endovaginal scanning: Performed for better visualization of the fetuses and maternal adnexal structures. COMPARISON: None. FINDINGS: General: An intrauterine diamniotic dichorionic twin is present, as evidenced by separate placental sites and/or intervening membrane thickness of greater than 2 mm at this early gestational age. Embryo A: There is pole with positive heart tone. A normal yolk sac is noted. Heart rate: 126 BPM. Embryo B: Gestational sac only. No pole or yolk sac. Heart rate: n/a. Measurement variability in dating: +/- 4 weeks by LMP, +/- 7 days by mean sac diameter (use before 6 weeks gestation if crown-rump length unable to be measured), +/- 5 days by crown-rump length (up to 8 weeks 6 days gestation), +/- 7 days by crown-rump length (up to 13 weeks 6 days gestation). Maternal organs: There is a corpus luteal cyst in the right ovary. Ovaries are otherwise normal. IMPRESSION: 1. There is a diamniotic dichorionic twin 2 gestational sacs. 2. There is a pole and heart tone in twin A with the estimated gestational age 7 weeks 0 day corresponding to ultrasound KARLA 01/14/2022. 2. No pole is identified in twin B. The estimated gestational age is 6 weeks 3 days based on the mean gestational sac dimension. The ultrasound findings concerning for blighted ovum. Recommend close imaging follow-up as clinically indicated. Dictated by: Becky Holden M.D. on 05/28/2021 at 14:04 Approved by: Becky Holden M.D. on 05/28/2021 at 14:16
== END ==
PROVIDERS: PCP Registered Nurse; Referring Provider Obstetrics & Gynecology; Visit Provider Obstetrics & Gynecology
DX: O30.041 Twin pregnancy, dichorionic/diamniotic, first trimester; O34.81 Maternal care for other abnormalities of pelvic organs, first trimester; N83.11 Corpus luteum cyst of right ovary; Z3A.01 Less than 8 weeks gestation of pregnancy
CPT/HCPCS: 76801; 76802; 76817

== ENCOUNTER → 2021-06-15 07:02 | Outpatient (CLI) | payer OTHER, SELFPAY ==
--- NOTE | 2021-06-15 07:03 | DI.US.S_ITS ---
PROCEDURE: OB <= 14 WEEKS FETUS INDICATIONS: VANISHING TWIN OUTSIDE/PRIOR DATING DATA: Last menstrual period (LMP): 04/13/2021. LMP-based estimated date of delivery (KARLA): 01/08/2022. First dating scan (date and location): 05/28/2022. Estimated date of delivery (KARLA) from first dating scan: 01/14/2022. TECHNIQUE: Real-time scanning was performed of the fetus and maternal pelvic organs, with image documentation. Endovaginal scanning was also performed to better visualize the fetus and maternal ovaries. COMPARISON: [facility], , OB <= 14 WK FETUS ADD GEST, 05/28/2021, 12:56. FINDINGS: Embryo: 2.8 cm, corresponding to gestational age 9 weeks 4 days Heart rate: 163 bpm The yolk sac is seen. Small perigestational hemorrhage measuring 3.9 x 1.4 x 1.1 cm, estimated volume of 3 cc. No twin demonstrated. Measurement variability in dating: +/- 4 weeks by LMP, +/- 7 days by mean sac diameter (use before 6 weeks gestation if crown-rump length not able to be measured), +/- 5 days by crown-rump length (up to 8 weeks 6 days gestation), +/- 7 days by crown-rump length (up to 13 weeks 6 days gestation). Maternal organs: Right corpus luteum. Left ovary is not seen. IMPRESSION: 1. [place] living intrauterine at 9 weeks 4 days based on today's crown rump length. heart rate 163 bpm. 2. Small perigestational hemorrhage. No twin demonstrated. Dictated by: Tyshawn Roldan M.D. on 06/15/2021 at 8:48 Approved by: Tyshawn Roldan M.D. on 06/15/2021 at 8:54
[2021-06-15 08:16] LABS: Appearance Urine UA CLEAR; Bilirubin Urine UA NEGATIVE (NEGATIVE); Color Urine UA YELLOW; Glucose Urine UA NEGATIVE (Negative); Ketones Urine UA NEGATIVE (NEGATIVE); Leukocyte Esterase Urine UA NEGATIVE (NEGATIVE); Nitrite Urine UA NEGATIVE (Negative); Occult Blood Urine UA NEGATIVE (Negative); Protein Urine UA NEGATIVE (Negative); Specific Gravity Urine UA <=1.005 (1.000-1.035); Urobilinogen Urine UA 0.2 E.U./dL (0.2)
[2021-06-15 08:36] LABS: Add Manual Diff / Slide Review NO; Basophils Absolute Auto 0 /uL (0-100); Basophils Percent Auto 0.6 % (0-2); Eosinophils Absolute Auto 0 /uL (0-450); Eosinophils Percent Auto 0.8 % (2-4); Hemoglobin 13.3 g/dL (12.0-16.0); Lymphocytes Absolute Auto 1600 /uL (1100-4500); Lymphocytes Percent Auto 26.1 % (25-40); Mean Corpuscular HGB Conc 34.1 % (30-36); Mean Corpuscular Hemoglobin 28.9 PG (26-34); Mean Corpuscular Volume 84.7 fL (80-100); Monocytes Absolute Auto 400 /uL (0-900); Monocytes Percent Auto 7.1 % (3-14); Neutrophils Absolute Auto 4100 /uL (1500-7000); Neutrophils Percent Auto 65.4 % (50-75); Platelet Count 217 X10^3/uL (150-400); Red Blood Cell Count 4.61 X10^6/uL (4.0-5.2); Red Cell Distribution Width 13.5 % (11.6-14.8); White Blood Cell Count 6.3 X10^3/uL (4.5-11.0)
[2021-06-15 09:20] LABS: Hepatitis B Surface Antigen NEGATIVE s/c (NEGATIVE); Rubella Antibody IgG 16.1 IU/mL (>15)
[2021-06-15 09:35] LABS: HIV 1 & 2 Ab/Ag 4th Gen Combo NEGATIVE (NEGATIVE); Hep C Virus Ab w/Reflex Quant NEGATIVE s/c (NEGATIVE)
[2021-06-16 07:11] LABS: RPR Screen Non Reactive (Non Reactive)
[2021-06-16 08:09] LABS: Varicella IgG Antibody 187 index (Immune >165)
== END ==
PROVIDERS: PCP Registered Nurse; Referring Provider Obstetrics & Gynecology; Visit Provider Obstetrics & Gynecology
DX: O46.8X1 Other antepartum hemorrhage, first trimester; O34.81 Maternal care for other abnormalities of pelvic organs, first trimester; N83.11 Corpus luteum cyst of right ovary; Z3A.09 9 weeks gestation of pregnancy
CPT/HCPCS: 36415; 76801; 76817; 80055; 81003; 86787; 86803; 86850; 86900; 86901; 87086; 87389

== ENCOUNTER → 2021-08-13 10:01 | Outpatient (CLI) | payer OTHER, SELFPAY ==
[2021-08-15 21:44] LABS: Calc Gestational Age Ultrasound (.); Estriol, Free 2.01 ng/mL (.); Inhibin A, Dimeric 94.09 pg/mL (.); Maternal Ethnicity Caucasian (.); Maternal Weight 155 lbs (.); Number of Fetuses No (.); OSBR Risk 1 IN 10000 (.); Results Report (.); Test Results *Screen Negative* (.); hCG, Serum 11559 mIU/mL (.)
== END ==
PROVIDERS: PCP Registered Nurse; Referring Provider Obstetrics & Gynecology; Visit Provider Obstetrics & Gynecology
DX: Z34.82 Encounter for supervision of other normal pregnancy, second trimester (principal); Z3A.18 18 weeks gestation of pregnancy
CPT/HCPCS: 36415; 82105; 82677; 84702; 86336

== ENCOUNTER → 2021-09-06 09:00 | Outpatient (CLI) | payer OTHER, SELFPAY ==
--- NOTE | 2021-09-06 09:01 | DI.US.S_ITS ---
PROCEDURE: US OB >= 14 WEEKS FETUS INDICATIONS: ANATOMY OUTSIDE/PRIOR DATING DATA: Last menstrual period (LMP): 04/13/2021 LMP-based estimated date of delivery (KARLA): 01/08/2022 First dating scan (date and location): 05/28/2022 at [facility] Estimated date of delivery (KARLA) from first dating scan: 01/14/2022 The calculations are made using the ultrasound KARLA of 01/14/2022 TECHNIQUE: Real-time scanning was performed of the fetus, with image documentation and biometric measurements. Endovaginal scanning: Not performed. COMPARISON: [facility], US, US OB >= 14 WEEKS FETUS, 08/13/2021, 10:00. FINDINGS: General: A single living intrauterine gestation is present. Presentation: Variable Placenta: Placental position is posterior, without previa. Amniotic fluid index: 12.8 cm, normal range is 5-24 cm. Single deepest vertical pocket is 4.4 cm. heart rate: 153 beats per minute. Maternal cervical canal: 7 cm long, although contraction of the lower uterine segment may be present and included in the measurement. biometrics: Biparietal diameter: 5.0 cm, 21 weeks 1 day Head circumference: 19.5 cm, 21 weeks 5 days Abdominal circumference: 16.6 cm, 21 weeks 4 days Femur length: 3.8 cm, 22 weeks 1 day Clinically estimated gestational age: 21 weeks 3 days Composite gestational age from present scan: 21 weeks 5 days Estimated weight and percentile: 449 g, 63rd percentile Anatomic survey: Neuro: Ventricles are non-dilated at less than 10 mm. Cisterna magna is normal at 3-11 mm. Cerebellum is normal in size and morphology. Nuchal skin fold: Normal at less than 6 mm between 14-21 weeks gestational age. Face: Nose and lips, facial profile are normal. Spine: No evidence for spina bifida. Heart: 4-chambered heart is present, with normal ventricular outflow tracts. Diaphragm: Diaphragm is intact. Stomach: Left-sided stomach is present. Kidneys: The renal pelvises appear mildly prominent bilaterally, measuring 6 mm in diameter on the right and 4 mm on the left however. The right renal pelvis is partially obscured by acoustic shadowing related to the spine. Normal is less than 5 mm in 2nd trimester, less than 7 mm in 3rd trimester. Cord: 3-vessel cord has orthotopic insertion. Bladder: Normal in size. Extremities: All 4 extremities identified. IMPRESSION: 1. Single live intrauterine with appropriate interval growth. 2. Mild prominence of the renal pelvises, measuring 6 mm on the right and 4 mm on the left. Recommend attention on follow-up exams. 3. Otherwise, normal anatomic survey. We strive to produce accurate, complete, and clear reports of imaging services. To assist us in improving patient care, this report was composed using standard report templates and voice recognition software. Therefore, it may contain abnormal punctuation, insertions and/or omissions. Occasional wrong-word or sound-alike substitutions may occur. Though we review the report and make efforts to correct it, we do recommend that the report be read carefully in proper context to recognize any text inaccuracies. Dictated by: Carlos Sullivan M.D. on 09/06/2021 at 12:33 Approved by: Carlos Sullivan M.D. on 09/06/2021 at 12:41
== END ==
PROVIDERS: PCP Registered Nurse; Referring Provider Obstetrics & Gynecology; Visit Provider Obstetrics & Gynecology
DX: Z34.82 Encounter for supervision of other normal pregnancy, second trimester (principal); Z3A.21 21 weeks gestation of pregnancy
CPT/HCPCS: 76811

== ENCOUNTER → 2021-09-10 08:41 | Outpatient (CLI) | payer OTHER, SELFPAY ==
[2021-09-10 13:16] LABS: Urine N gonorrhoeae NOT DETECTED
[2021-09-10 13:49] LABS: Urine Chlamydia NOT DETECTED
== END ==
PROVIDERS: PCP Registered Nurse; Visit Provider Obstetrics & Gynecology
DX: Z34.82 Encounter for supervision of other normal pregnancy, second trimester (principal); Z3A.22 22 weeks gestation of pregnancy
CPT/HCPCS: 87491; 87591

== ENCOUNTER → 2021-10-05 09:33 | Outpatient (CLI) | payer OTHER, SELFPAY ==
[2021-10-05 12:48] LABS: Hematocrit 32.9 % (36-46); Hemoglobin 11.1 g/dL (12.0-16.0)
[2021-10-08 10:16] LABS: GTT (PREG) 1 Hour PP 50gm Dose 106 mg/dL (76-139)
== END ==
PROVIDERS: PCP Registered Nurse; Referring Provider Obstetrics & Gynecology; Visit Provider Obstetrics & Gynecology
DX: Z34.82 Encounter for supervision of other normal pregnancy, second trimester (principal); Z3A.25 25 weeks gestation of pregnancy
CPT/HCPCS: 36415; 82950; 85014; 85018

== ENCOUNTER 2021-11-13 08:35 | Outpatient (CLI) | payer OTHER, SELFPAY ==
[2021-11-13 09:40] LABS: Add Manual Diff / Slide Review NO; Basophils Absolute Auto 0 /uL (0-100); Basophils Percent Auto 0.5 % (0-2); Eosinophils Absolute Auto 100 /uL (0-450); Eosinophils Percent Auto 0.9 % (2-4); Hematocrit 29.6 % (36-46); Lymphocytes Absolute Auto 1500 /uL (1100-4500); Lymphocytes Percent Auto 17.9 % (25-40); Mean Corpuscular HGB Conc 33.9 % (30-36); Mean Corpuscular Hemoglobin 27.3 PG (26-34); Mean Corpuscular Volume 80.5 fL (80-100); Monocytes Absolute Auto 500 /uL (0-900); Neutrophils Absolute Auto 6100 /uL (1500-7000); Neutrophils Percent Auto 74.7 % (50-75); Platelet Count 175 X10^3/uL (150-400); Red Blood Cell Count 3.68 X10^6/uL (4.0-5.2); Red Cell Distribution Width 13.5 % (11.6-14.8); White Blood Cell Count 8.2 X10^3/uL (4.5-11.0)
[2021-11-13 09:51] LABS: Aspartate Aminotransferase 18 IU/L (14-36); BUN Creatinine Ratio 8.3 (6-22); Blood Urea Nitrogen 6 mg/dL (7-17); Estimated Glomerular Filt Rate > 60 mL/min (>60); Uric Acid 4.1 mg/dL (2.5-6.2)
[2021-11-13 10:48] LABS: Creatinine Urine Random 74.3 mg/dL; Protein (Total) Urine Random 5 mg/dL (0-12); Protein Creatinine Ratio Urine 0.06 GRAM/24H
[2021-11-13 13:54] LABS: Protein (Total) Urine Random 5 mg/dL (0-12)
== END 2021-11-13 10:35 | disposition home or self-care (01) ==
LOC: LABOR 09:08 → OB 11-15 07:25
PROVIDERS: PCP Registered Nurse; Referring Provider Obstetrics & Gynecology; Visit Provider Obstetrics & Gynecology
DX: O13.3 Gestational [pregnancy-induced] hypertension without significant proteinuria, third trimester (principal); Z3A.31 31 weeks gestation of pregnancy
CPT/HCPCS: 36415; 59025; 82570; 84156; 84450; 84550; 85025; G0378; G0379

== ENCOUNTER 2021-11-19 13:59 | Outpatient (CLI) | payer OTHER, SELFPAY | END 2021-11-19 14:30 | disposition home or self-care (01) | LOC: LABOR 14:23 → OB 11-20 07:29 | PROVIDERS: Referring Provider Obstetrics & Gynecology; Visit Provider Obstetrics & Gynecology | DX: O13.3 Gestational [pregnancy-induced] hypertension without significant proteinuria, third trimester (principal); Z3A.32 32 weeks gestation of pregnancy | CPT/HCPCS: 59025; G0378; G0379 ==

== ENCOUNTER 2021-11-24 08:01 | Outpatient (CLI) | payer OTHER, SELFPAY ==
--- NOTE | 2021-11-24 08:37 | PM.OBTRLD ---
Visit Information Visit Information Date of evaluation: 11/24/21 Primary OB Provider: Olimpia Ray On-call OB Provider: Soraida Helm Reason for Evaluation: Yes non-stress test non-stress test reason: hypertension/pre-eclampsia Comments/Additional reasons for admission: 31-year-old at 32 weeks and 5 days gestation with chronic hypertension here for NST. She has no complaints. She is taking labetalol as prescribed. Vital Signs Vital Signs: Blood pressure 119/64 heart rate 89 [facility] Medical History (Updated 11/24/21 @ 08:39 by Soraida Helm DO) Elliott's palsy affecting (~2019) Bleeding in early (~2019) Chicken pox (~1994) Medication management Migraine Vaginal delivery (~07/26/20) Surgical History [place] teeth extracted Family History Father Stroke Hypertension Aorta aneurysm Mother No problems noted. 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 sherman/mormon: [place] special sherman needs: No seatbelt use: always do you feel safe at home: Yes Smoking Status: Never smoker second hand exposure: No alcohol intake: former (pre- : occasional) substance use type: does not use during the past year weight has: remained stable well-balanced diet: about half the time (food aversions currently.) daily servings fruits/ve-1 caffeine: Yes (Tea: aware of limit.) Type(s) of exercise: walking (Daily walks when it's nice out. ) and regular exercise ([employer], treadmill.) frequency: 3-4 times per week duration: 30-45 minutes/day Evaluation Evaluation Baseline heart rate: 140 Variability: Moderate (11-25) monitor accelerations: Present Monitor Decelerations: Absent Category of Tracing: Reactive Diagnosis, Plan/Disposition Final Diagnosis (1) 32 weeks gestation of : Status: Acute (2) Chronic hypertension: Status: Acute Plan/Disposition Plan: 31-year-old at 32 weeks and 5 days gestation. complicated by chronic hypertension well controlled with labetalol. NST reactive today. Follow-up in clinic as scheduled return sooner if needed. OB Disposition: home
== END 2021-11-24 08:40 | disposition home or self-care (01) ==
LOC: LABOR 08:49 → OB 11-27 06:37
PROVIDERS: PCP Obstetrics & Gynecology; Referring Provider Obstetrics & Gynecology; Visit Provider Obstetrics & Gynecology
DX: O10.913 Unspecified pre-existing hypertension complicating pregnancy, third trimester (principal); Z3A.32 32 weeks gestation of pregnancy
CPT/HCPCS: 59025; G0378; G0379

== ENCOUNTER 2021-12-01 19:07 | Emergency (ER) | payer OTHER, SELFPAY ==
[2021-12-01] VITALS (12 sets, daily range): BP systolic 91–105; BP diastolic 50–57; PULSE 128–145; RESP 20–28; TEMP 37.4–37.6; O2SAT 95–97; BMI 29.2
--- NOTE | 2021-12-01 19:31 | ED_ITS ---
HPI - General Adult General Chief complaint: Fever Stated complaint: 33 weeks preg with covid Time Seen by Provider: 12/01/21 19:12 Source: patient Mode of arrival: Ambulatory Limitations: no limitations History of Present Illness HPI narrative: Patient is a 31-year-old female. at 33 weeks EGA who is here for evaluation of decreased activity, fatigue, cough and fever. Patient did test this morning for COVID and she was positive. She is vaccinated. She had the Jorge and Jorge vaccine approximately 1 year ago. has been uncomplicated up to this point. She is not having any current vaginal bleeding or vaginal discharge. She did take Tylenol approximately 6 hours ago. Related Data Home Medications Medication Instructions Recorded Confirmed prenat.vits,jacoby,[id number] 1 tab PO DAILY 11/19/19 11/19/21 diphenhydramine HCl 50 mg capsule 50 mg PO BEDTIME 06/06/21 11/19/21 (Unisom SleepGels) pyridoxine (vitamin B6) 50 mg 50 mg PO ONCE 06/06/21 11/19/21 tablet Previous Rx's Medication Instructions Recorded labetalol 100 mg tablet 100 mg PO BID #180 tab 11/22/21 Allergies Allergy/AdvReac Type Severity Reaction Status Date / Time No Known Drug Allergies Allergy Verified 11/19/21 14:46 Review of Systems Constitutional Constitutional: Reports chills, Reports fatigue, Reports fever(s) and Reports lethargy Cardiovascular Cardiovascular: Denies chest pain Respiratory Respiratory: Reports cough Gastrointestinal Gastrointestinal: Denies abdominal pain, Denies cramping, Denies diarrhea, Denies nausea and Denies vomiting Comments: Decreased activity the Genitourinary Genitourinary: Denies dysuria Musculoskeletal Musculoskeletal: Reports system reviewed and no additional complaints, except as documented Integumentary/Breasts Skin/Breast: Reports system reviewed and no additional complaints, except as documented Neurologic Neurologic: Reports system reviewed and no additional complaints, except as documented Endocrine Endocrine: Reports fatigue Hematologic/Lymphatic On Anticoagulants: No Patient History Medical History Elliott's palsy affecting (~2019) Bleeding in early (~2019) Chicken pox (~1994) Medication management Migraine Vaginal delivery (~07/26/20) Surgical History [place] teeth extracted Family History Father Stroke Hypertension Aorta aneurysm Mother No problems noted. 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 ) and regular exercise (Peloton, treadmill.) frequency: 3-4 times per week duration: 30-45 minutes/day Smoking Status: Never smoker Exam Initial Vital Signs Initial Vital Signs: Vital Signs Temperature 99.6 F 12/01/21 19:15 Pulse Rate 143 H 12/01/21 19:15 Respiratory Rate 28 H 12/01/21 19:15 Blood Pressure 93/55 L 12/01/21 19:15 Pulse Oximetry 97 12/01/21 19:15 HENMT Head: normal to inspection and normocephalic Resp Effort & Inspection: normal respiratory effort Auscultation: clear to auscultation bilaterally Cardio Rate: regular rate Rhythm: regular rhythm GI Other: Gravid abdomen. Skin General: no rashes or lesions noted Neuro General: patient alert, patient awake and moves all extremities Extrem General: normal to inspection Psych Appearance: grossly normal Course Orders Ordered: ED Orders 12/01/21 19:34 Basic Metabolic Panel Stat Complete Blood Count AUTO DIFF Stat Hepatic (Liver) Panel Stat LDH [Lactate Dehydrogenase] Stat Uric Acid Stat 12/01/21 21:14 Protein Creatinine Ratio Urine Stat Urinalysis and Microscopic Stat Urine Culture Stat 12/01/21 21:33 US OB biophysical profile Stat Discontinued Medications Acetaminophen (Acetaminophen 325 Mg Tablet) 975 mg PO NOW ONE Stop: 12/01/21 19:32 Last Admin: 12/01/21 20:08 Dose: 975 mg Documented by: RUPERTO Sodium Chloride (Normal Saline 0.9%) 1,000 mls @ 1,000 mls/hr IV BOLUS ONE Stop: 12/01/21 20:24 Last Infusion: 12/01/21 21:24 Dose: 0 mls/hr Documented by: Admin: 12/01/21 20:07 Dose: 1,000 mls/hr Documented by: RUPERTO Vital Signs Vital signs: Vital Signs - 8 hr 12/01/21 19:15 12/01/21 19:24 12/01/21 19:30 Temperature 99.6 F Pulse Rate 143 H 145 H 133 H Respiratory Rate 28 H Blood Pressure 93/55 L Pulse Oximetry 97 97 96 12/01/21 19:34 12/01/21 20:00 12/01/21 20:30 Temperature Pulse Rate 136 H 131 H 131 H Respiratory Rate Blood Pressure 105/55 L 104/57 L 97/52 L Pulse Oximetry 96 96 96 12/01/21 21:00 12/01/21 21:09 12/01/21 21:20 Temperature 99.4 F Pulse Rate 134 H 137 H Respiratory Rate 20 Blood Pressure 92/51 L 91/50 L Pulse Oximetry 95 95 12/01/21 21:30 12/01/21 22:00 12/01/21 22:30 Temperature Pulse Rate 135 H 136 H 128 H Respiratory Rate 20 Blood Pressure 97/55 L 104/55 L 99/53 L Pulse Oximetry 96 95 96 Medical Decision Making Lab Data Lab results reviewed: Yes I reviewed the patient's lab results. Result diagrams: 12/01/21 19:34 12/01/21 19:34 Labs: Lab Results 12/01/21 12/01/21 12/01/21 Range/Units 19:34 19:34 19:34 WBC 7.4 (4.5-11.0) X10^3/uL RBC 3.57 L (4.0-5.2) X10^6/uL Hgb 9.5 L (12.0-16.0) g/dL Hct 28.4 L (36-46) % MCV 79.6 L (80-100) fL MCH 26.6 (26-34) PG MCHC 33.4 (30-36) % RDW 14.6 (11.6-14.8) % Plt Count 139 L (150-400) X10^3/uL Neut % (Auto) 90.6 H (50-75) % Lymph % (Auto) 2.6 L (25-40) % Polk % (Auto) 6.3 (3-14) % Eos % (Auto) 0.3 L (2-4) % Baso % (Auto) 0.2 (0-2) % Neut # (Auto) 6700 (4872-3570) /uL Lymph # (Auto) 200 L (0816-3150) /uL Polk # (Auto) 500 (0-900) /uL Eos # (Auto) 0 (0-450) /uL Baso # (Auto) 0 (0-100) /uL Sodium 133 L (137-145) mmol/L Potassium 3.9 (3.4-5.1) mmol/L Chloride 107 (98-107) mmol/L Carbon Dioxide 20 L (22-32) mmol/L BUN 9 (7-17) mg/dL Creatinine 0.60 (0.52-1.04) mg/dL Estimated GFR > 60 (>60) mL/min BUN/Creatinine Ratio 15.0 (6-22) Glucose 112 H (70-100) mg/dL Uric Acid (2.5-6.2) mg/dL Calcium 9.2 (8.4-10.2) mg/dL Total Bilirubin 0.3 (0.2-1.3) mg/dL Conjugated Bilirubin 0.0 (0.0-0.3) md/dL Unconjugated Bilirubin 0.4 (0.0-1.1) mg/dL AST 48 H (14-36) IU/L ALT 26 (<35) IU/L Alkaline Phosphatase 111 (38-126) U/L Lactate Dehydrogenase 420 (313-618) U/L Total Protein 7.2 (6.3-8.2) g/dL Albumin 3.7 (3.5-5.0) g/dL Globulin 3.5 (1.7-4.1) g/dL Albumin/Globulin Ratio 1.1 (1.0-2.8) Urine Color Urine Appearance Urine pH (4.5-8.0) Ur Specific [place] (1.000-1.035) Urine Protein (Negative) Urine Glucose (UA) (Negative) g/dL Urine Ketones (NEGATIVE) Urine Occult Blood (Negative) Urine Nitrate (Negative) Urine Bilirubin (NEGATIVE) Urine Urobilinogen (0.2) E.U./dL Ur Leukocyte Esterase (NEGATIVE) Urine RBC (0-5/HPF) Urine WBC (0-5/HPF) Ur Squamous Epith Cells (0-5/HPF) Urine Bacteria (None) Ur Culture Indicated? U Random Total Protein (0-12) mg/dL Urine Creatinine mg/dL Protein/Creatinin Ratio GRAM/24H 12/01/21 12/01/21 12/01/21 Range/Units 19:34 21:14 21:14 WBC (4.5-11.0) X10^3/uL RBC (4.0-5.2) X10^6/uL Hgb (12.0-16.0) g/dL Hct (36-46) % MCV (80-100) fL MCH (26-34) PG MCHC (30-36) % RDW (11.6-14.8) % Plt Count (150-400) X10^3/uL Neut % (Auto) (50-75) % Lymph % (Auto) (25-40) % Polk % (Auto) (3-14) % Eos % (Auto) (2-4) % Baso % (Auto) (0-2) % Neut # (Auto) (7826-2252) /uL Lymph # (Auto) (8595-8617) /uL Polk # (Auto) (0-900) /uL Eos # (Auto) (0-450) /uL Baso # (Auto) (0-100) /uL Sodium (137-145) mmol/L Potassium (3.4-5.1) mmol/L Chloride (98-107) mmol/L Carbon Dioxide (22-32) mmol/L BUN (7-17) mg/dL Creatinine (0.52-1.04) mg/dL Estimated GFR (>60) mL/min BUN/Creatinine Ratio (6-22) Glucose (70-100) mg/dL Uric Acid 4.4 (2.5-6.2) mg/dL Calcium (8.4-10.2) mg/dL Total Bilirubin (0.2-1.3) mg/dL Conjugated Bilirubin (0.0-0.3) md/dL Unconjugated Bilirubin (0.0-1.1) mg/dL AST (14-36) IU/L ALT (<35) IU/L Alkaline Phosphatase (38-126) U/L Lactate Dehydrogenase (313-618) U/L Total Protein (6.3-8.2) g/dL Albumin (3.5-5.0) g/dL Globulin (1.7-4.1) g/dL Albumin/Globulin Ratio (1.0-2.8) Urine Color Yellow Urine Appearance Clear Urine pH 5.5 (4.5-8.0) Ur Specific [place] 1.010 (1.000-1.035) Urine Protein Negative (Negative) Urine Glucose (UA) Negative (Negative) g/dL Urine Ketones 1+ H (NEGATIVE) Urine Occult Blood Negative (Negative) Urine Nitrate Negative (Negative) Urine Bilirubin Negative (NEGATIVE) Urine Urobilinogen 0.2 (0.2) E.U./dL Ur Leukocyte Esterase Trace H (NEGATIVE) Urine RBC None seen (0-5/HPF) Urine WBC 0-1/hpf (0-5/HPF) Ur Squamous Epith Cells 1-5 /hpf (0-5/HPF) Urine Bacteria Occasional (0-1) (None) Ur Culture Indicated? Specimen cultured U Random Total Protein 9 (0-12) mg/dL Urine Creatinine 50.6 mg/dL Protein/Creatinin Ratio 0.17 GRAM/24H Imaging Data OB BPP: Radiologist's Impression: [address] [address] Ultrasound Report Signed Patient: Yumiko Carlin MR#: [id number] : 1990 Acct:[id number] Age/Sex: 31 / F Date of Service: 12/01/21 Loc: ED Accession Number: [id number] ?? Procedure: US OB biophysical profile Ordering Provider: Fausto Oliver D.O. PROCEDURE:? US OB BIOPHYSICAL PROFILE ? INDICATIONS:? covid and hypotension ? OUTSIDE/PRIOR DATING DATA:? Last menstrual period (LMP):? 04/13/21 LMP-based estimated date of delivery (KARLA):? 01/08/22.? First dating scan (date and location):? 05/28/21.? Estimated date of delivery (KARLA) from first dating scan:? 01/14/22. The calculations are made using the 1st KARLA of 01/14/22.? ? TECHNIQUE:? Real-time scanning was performed of the fetus for biophysical profile, with image documentation.? Color and pulse Doppler interrogation was also performed of the umbilical artery near its insertion into the placenta.? Endovaginal scanning:? Not needed ? COMPARISON:? [facility], , OB BIOPHYSICAL PROFILE, 07/25/2020, 12:21. ? FINDINGS:? ? General:? A single living intrauterine gestation is present.? Presentation:? Vertex Placenta:? Placental position is posterior , without previa.? ? Amniotic fluid index:? 14.2 cm, normal range is 5-24 cm.? heart rate:? 160 beats per minute.? Maternal cervical canal:? 4.1 cm long.? Normal lower limit is 2.5 cm. ? Biophysical profile:? Tone:? 2 points. Movement:? 2 points. Respiration:? 2 points. Largest pocket of fluid:? 2 points.? ? Umbilical artery Doppler:? Normal ? ? IMPRESSION:? Normal biophysical profile, 8 of 8 possible points.? Viable gestation. ? We strive to produce accurate, complete, and clear reports of imaging services. To assist us in improving patient care, this report was composed using standard report templates and voice recognition software. Therefore, it may contain abnormal punctuation, insertions and/or omissions. Occasional wrong-word or sound-alike substitutions may occur. Though we review the report and make efforts to correct it, we do recommend that the report be read carefully in proper context to recognize any text inaccuracies. ? ? ? Dictated by: Carlos Ribera M.D. on 12/01/2021 at 22:43 ? ? Approved by: Carlos Ribera M.D. on 12/01/2021 at 22:47 MDM Narrative Medical decision making narrative: Patient did have a home positive COVID test. She is vaccinated. She is 32 weeks . No abdominal cramping or loss of fluid. Has clear lung exam. Not hypoxic. Was tachycardic and this did not change all that much after Tylenol nor fluids. Patient was asymptomatic for this. She ambulated around the emergency department. Dr. Castillo with Ob was involved in the care. She recommended the BPP and the patient did have a 8 out 8. heart rate was slightly elevated at 168 however this is not surprising given the mother's heart rate. She also had a normal nonstress test. Patient states she does feel somewhat better would like to be discharged home. I have low suspicion for pul monary embolism given her presentation. She has no chest pain. Patient not anemic. The OB office will contact her on Friday for a follow-up. Patient was given return precautions. She expressed understanding and agreement. Discharge Plan Departure Patient Disposition: Home Clinical Impression: COVID-19, , Tachycardia Instructions: DI for COVID-19 (Suspected or Confirmed ) Activity Restrictions/Additional Instructions: Be sure to increase your fluid intake. You can take Tylenol for any fevers or body aches. Should be receiving a call from your OB providers office on Friday for a checkup. Return to the emergency department for any new symptoms to include abdominal pain, vaginal bleeding, loss of fluid, cramping, shortness of breath her any other worsening symptoms. Prescriptions: No Action labetalol 100 mg tablet 100 mg PO BID Qty: 180 2RF prenat.vits,jacoby,[id number] Tablet 1 tab PO DAILY 0RF pyridoxine (vitamin B6) 50 mg tablet 50 mg PO ONCE 0RF diphenhydramine HCl [Unisom SleepGels] 50 mg capsule 50 mg PO BEDTIME 0RF Referrals: Olimpia Ray MD [Primary Care Provider] -
--- NOTE | 2021-12-01 19:43 | PC.NURSE ---
L&D RN at bedside performing stress test.
[2021-12-01 19:51] LABS: Add Manual Diff / Slide Review NO; Basophils Absolute Auto 0 /uL (0-100); Basophils Percent Auto 0.2 % (0-2); Eosinophils Absolute Auto 0 /uL (0-450); Eosinophils Percent Auto 0.3 % (2-4); Hematocrit 28.4 % (36-46); Hemoglobin 9.5 g/dL (12.0-16.0); Lymphocytes Absolute Auto 200 /uL (1100-4500); Lymphocytes Percent Auto 2.6 % (25-40); Mean Corpuscular HGB Conc 33.4 % (30-36); Mean Corpuscular Hemoglobin 26.6 PG (26-34); Mean Corpuscular Volume 79.6 fL (80-100); Monocytes Absolute Auto 500 /uL (0-900); Monocytes Percent Auto 6.3 % (3-14); Neutrophils Absolute Auto 6700 /uL (1500-7000); Neutrophils Percent Auto 90.6 % (50-75); Platelet Count 139 X10^3/uL (150-400); Red Blood Cell Count 3.57 X10^6/uL (4.0-5.2); Red Cell Distribution Width 14.6 % (11.6-14.8); White Blood Cell Count 7.4 X10^3/uL (4.5-11.0)
[2021-12-01 20:05] LABS: Blood Urea Nitrogen 9 mg/dL (7-17); Calcium 9.2 mg/dL (8.4-10.2); Carbon Dioxide 20 mmol/L (22-32); Chloride 107 mmol/L (98-107); Estimated Glomerular Filt Rate > 60 mL/min (>60); Glucose 112 mg/dL (70-100); HEMOLYSIS < 15 (0-50); Potassium 3.9 mmol/L (3.4-5.1); Sodium 133 mmol/L (137-145)
--- NOTE | 2021-12-01 20:06 | PC.NURSE ---
NST with FHR @160, with 10 x 10 accelerations, no decelerations noted, 3 cxns noted, but pt. denies feeling them. Category 1 strip.
[2021-12-01] MEDS: SODIUM CHLORIDE 0.9% 1,000 ML 1000 ML IV (20:07)
[2021-12-01] MEDS: ACETAMINOPHEN 325 MG TABLET 975 MG PO (20:08)
[2021-12-01 21:15] LABS: Alanine Aminotransferase 26 IU/L (<35); Albumin 3.7 g/dL (3.5-5.0); Albumin Globulin Ratio 1.1 (1.0-2.8); Alkaline Phosphatase 111 U/L (38-126); Aspartate Aminotransferase 48 IU/L (14-36); Bilirubin Total 0.3 mg/dL (0.2-1.3); Bilirubin Unconjugated 0.4 mg/dL (0.0-1.1); Globulin 3.5 g/dL (1.7-4.1); HEMOLYSIS < 15 (0-50); Lactate Dehydrogenase 420 U/L (313-618); Total Protein 7.2 g/dL (6.3-8.2)
--- NOTE | 2021-12-01 21:33 | DI.US.S_ITS ---
PROCEDURE: US OB BIOPHYSICAL PROFILE INDICATIONS: covid and hypotension OUTSIDE/PRIOR DATING DATA: Last menstrual period (LMP): 04/13/21 LMP-based estimated date of delivery (KARLA): 01/08/22. First dating scan (date and location): 05/28/21. Estimated date of delivery (KARLA) from first dating scan: 01/14/22. The calculations are made using the 1st KARLA of 01/14/22. TECHNIQUE: Real-time scanning was performed of the fetus for biophysical profile, with image documentation. Color and pulse Doppler interrogation was also performed of the umbilical artery near its insertion into the placenta. Endovaginal scanning: Not needed COMPARISON: [facility], , OB BIOPHYSICAL PROFILE, 07/25/2020, 12:21. FINDINGS: General: A single living intrauterine gestation is present. Presentation: Vertex Placenta: Placental position is posterior , without previa. Amniotic fluid index: 14.2 cm, normal range is 5-24 cm. heart rate: 160 beats per minute. Maternal cervical canal: 4.1 cm long. Normal lower limit is 2.5 cm. Biophysical profile: Tone: 2 points. Movement: 2 points. Respiration: 2 points. Largest pocket of fluid: 2 points. Umbilical artery Doppler: Normal IMPRESSION: Normal biophysical profile, 8 of 8 possible points. Viable gestation. We strive to produce accurate, complete, and clear reports of imaging services. To assist us in improving patient care, this report was composed using standard report templates and voice recognition software. Therefore, it may contain abnormal punctuation, insertions and/or omissions. Occasional wrong-word or sound-alike substitutions may occur. Though we review the report and make efforts to correct it, we do recommend that the report be read carefully in proper context to recognize any text inaccuracies. Dictated by: Carlos Ribera M.D. on 12/01/2021 at 22:43 Approved by: Carlos Ribera M.D. on 12/01/2021 at 22:47
[2021-12-01 21:36] LABS: Appearance Urine UA CLEAR; Color Urine UA YELLOW; Leukocyte Esterase Urine UA TRACE (NEGATIVE); Nitrite Urine UA NEGATIVE (Negative); Protein Urine UA NEGATIVE (Negative); Urobilinogen Urine UA 0.2 E.U./dL (0.2)
[2021-12-01 21:38] LABS: Bilirubin Urine UA NEGATIVE (NEGATIVE); Glucose Urine UA NEGATIVE (Negative); Ketones Urine UA 1+ (NEGATIVE); Occult Blood Urine UA Negative (Negative); pH Urine UA 5.5 (4.5-8.0)
[2021-12-01 21:53] LABS: Uric Acid 4.4 mg/dL (2.5-6.2)
[2021-12-01 21:57] LABS: Creatinine Urine Random 50.6 mg/dL; Protein (Total) Urine Random 9 mg/dL (0-12); Protein Creatinine Ratio Urine 0.17 GRAM/24H
[2021-12-01 22:15] LABS: Bacteria Urine Occasional (0-1); Culture Indicated Urine Specimen Cultured; RBC Urine None Seen (0-5/HPF); Squamous Epithelial Cell Urine 1-5 /HPF (0-5/HPF); WBC Urine 0-1/HPF (0-5/HPF)
== END 2021-12-01 23:00 | disposition home or self-care (01) ==
PROVIDERS: Obstetrics & Gynecology; Emergency Provider Emergency Medicine; PCP Obstetrics & Gynecology
DX: O98.513 Other viral diseases complicating pregnancy, third trimester (principal); U07.1 COVID-19; O99.413 Diseases of the circulatory system complicating pregnancy, third trimester; R00.0 Tachycardia, unspecified; Z3A.32 32 weeks gestation of pregnancy
CPT/HCPCS: 36415; 76819; 80048; 80076; 81001; 82570; 83615; 84156; 84550; 85025; 87086; 99284

== ENCOUNTER 2021-12-10 14:15 | Outpatient (CLI) | payer OTHER, SELFPAY ==
--- NOTE | 2021-12-11 03:57 | P.TNLD_ITS ---
Visit Information Visit Information Date of evaluation: 12/10/21 Primary OB Provider: Olimpia Ray On-call OB Provider: Olimpia Ray Reason for Evaluation: Yes non-stress test non-stress test reason: hypertension/pre-eclampsia [facility] Medical History Elliott's palsy affecting (~2019) Bleeding in early (~2019) Chicken pox (~1994) Medication management Migraine Vaginal delivery (~07/26/20) Surgical History [place] teeth extracted Family History Father Stroke Hypertension Aorta aneurysm Mother No problems noted. 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 ) and regular exercise (Peloton, treadmill.) frequency: 3-4 times per week duration: 30-45 minutes/day Evaluation Evaluation Baseline heart rate: 130 Variability: Moderate (11-25) monitor accelerations: Present Monitor Decelerations: Absent Contraction Frequency (minutes): 5 Uterine Contraction Intensity: Mild Category of Tracing: Reactive Diagnosis, Plan/Disposition Plan/Disposition Plan: Assessment: 31-year-old at 36 weeks gestation with chronic hypertension Reactive nonstress test Plan: Discharged home OB Disposition: home
== END 2021-12-10 14:59 | disposition home or self-care (01) ==
LOC: LABOR 14:46 → OB 12-11 06:51
PROVIDERS: Referring Provider Obstetrics & Gynecology; Visit Provider Obstetrics & Gynecology
DX: O10.913 Unspecified pre-existing hypertension complicating pregnancy, third trimester (principal); Z3A.36 36 weeks gestation of pregnancy
CPT/HCPCS: 59025; G0378; G0379

== ENCOUNTER 2021-12-20 08:54 | Outpatient (CLI) | payer OTHER, SELFPAY | END 2021-12-20 09:46 | disposition home or self-care (01) | LOC: LABOR 09:46 → OB 12-26 13:56 | PROVIDERS: Referring Provider Obstetrics & Gynecology; Visit Provider Obstetrics & Gynecology | DX: O13.3 Gestational [pregnancy-induced] hypertension without significant proteinuria, third trimester (principal); Z3A.36 36 weeks gestation of pregnancy | CPT/HCPCS: 59025; G0378; G0379 ==

== ENCOUNTER 2021-12-26 08:39 | Outpatient (CLI) | payer OTHER, SELFPAY | END 2021-12-26 09:30 | disposition home or self-care (01) | LOC: OB 12-28 11:32 | PROVIDERS: Referring Provider Obstetrics & Gynecology; Visit Provider Obstetrics & Gynecology | DX: O13.3 Gestational [pregnancy-induced] hypertension without significant proteinuria, third trimester (principal); Z3A.37 37 weeks gestation of pregnancy; Z34.83 Encounter for supervision of other normal pregnancy, third trimester | CPT/HCPCS: 59025; 87653; G0378; G0379 ==

== ENCOUNTER → 2021-12-26 09:48 | Outpatient (CLI) | payer OTHER, SELFPAY ==
[2021-12-27 07:43] LABS: Strep Grp B PCR NEG for Grp B Strep
== END ==
PROVIDERS: Visit Provider Obstetrics & Gynecology
DX: Z34.83 Encounter for supervision of other normal pregnancy, third trimester (principal); Z3A.37 37 weeks gestation of pregnancy
CPT/HCPCS: 87653

== ENCOUNTER 2022-01-01 13:31 | Outpatient (CLI) | payer OTHER, SELFPAY ==
--- NOTE | 2022-01-02 06:11 | P.TNLD_ITS ---
Visit Information Visit Information Date of evaluation: 01/01/22 Primary OB Provider: Olimpia Ray Reason for Evaluation: Yes non-stress test non-stress test reason: hypertension/pre-eclampsia [facility] Medical History Elliott's palsy affecting (~2019) Bleeding in early (~2019) Chicken pox (~1994) Medication management Migraine Vaginal delivery (~07/26/20) Surgical History [place] teeth extracted Family History Father Stroke Hypertension Aorta aneurysm Mother No problems noted. 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 ) and regular exercise (Peloton, treadmill.) frequency: 3-4 times per week duration: 30-45 minutes/day Evaluation Evaluation Baseline heart rate: 140 Variability: Moderate (11-25) monitor accelerations: Present Monitor Decelerations: Absent Contraction Frequency (minutes): 12 Uterine Contraction Intensity: Mild Category of Tracing: Reactive Diagnosis, Plan/Disposition Plan/Disposition Plan: Assessment: 31 year old at 38 weeks with Chronic hypertension Reactive NST Plan: F/U 5 days for Cervical ripening/Pitocin induction of labor S/S labor reviewed [facility] OB Disposition: home
== END 2022-01-01 14:14 | disposition home or self-care (01) ==
LOC: OB 01-02 10:35
PROVIDERS: Referring Provider Obstetrics & Gynecology; Visit Provider Obstetrics & Gynecology
DX: O10.913 Unspecified pre-existing hypertension complicating pregnancy, third trimester (principal); Z3A.38 38 weeks gestation of pregnancy
CPT/HCPCS: 59025; G0378; G0379

== ENCOUNTER 2022-01-06 18:42 | Inpatient (IN) | payer OTHER, SELFPAY ==
[2022-01-06 19:35] VITALS: BP 123/76
[2022-01-06 20:23] LABS: Add Manual Diff / Slide Review NO; Basophils Absolute Auto 100 /uL (0-100); Basophils Percent Auto 0.7 % (0-2); Eosinophils Absolute Auto 0 /uL (0-450); Eosinophils Percent Auto 0.5 % (2-4); Hematocrit 28.5 % (36-46); Hemoglobin 9.7 g/dL (12.0-16.0); Lymphocytes Absolute Auto 1500 /uL (1100-4500); Lymphocytes Percent Auto 17.7 % (25-40); Mean Corpuscular Hemoglobin 25.5 PG (26-34); Mean Corpuscular Volume 74.9 fL (80-100); Monocytes Absolute Auto 600 /uL (0-900); Monocytes Percent Auto 6.9 % (3-14); Neutrophils Absolute Auto 6200 /uL (1500-7000); Neutrophils Percent Auto 74.2 % (50-75); Platelet Count 159 X10^3/uL (150-400); Red Blood Cell Count 3.81 X10^6/uL (4.0-5.2); Red Cell Distribution Width 15.1 % (11.6-14.8); White Blood Cell Count 8.4 X10^3/uL (4.5-11.0)
[2022-01-06 20:39] LABS: COVID19 -Nasal RAPID Negative (Negative)
[2022-01-06] MEDS: DINOPROSTONE VAG (CERVIDIL) 10 MG VAG (20:48)
[2022-01-07] MEDS: fentaNYL 100 MCG/2 ML INJ 50 MCG IV (06:17)
--- NOTE | 2022-01-07 07:50 | P.HPOB_ITS ---
OB HPI Date/Time Date of admission: 01/07/22 Date Patient Seen: 01/07/22 Time Patient Seen: 07:51 History of Present Condition Chief complaint: Induction of labor KARLA Calculator Estimated Delivery Date Method Current WG Current Estimate 01/14/22 Ultrasound #1 39w 0d Other Estimates 01/02/22 LMP (Certain) 40w 5d 01/11/22 Ultrasound #2 39w 3d Estimated Gestational Age (weeks): 39 : 2 Para: 1 care: good care, initiated at week # (13), number of visits (9) and pounds weight gain (33) Dating criteria OB: LMP confirmed by 1st trimester US Ultrasounds: normal 1st trimester US and normal mid trimester US Obstetrical complications: other Medical complications OB: cardiovascular (Chronic hypertension) Indications Indication for induction OB: gestational HTN/pre-eclampsia Preadmission Labs Last OB Lab Results: Blood Type B Positive 01/06/22 19:50 Antibody Screen Negative 01/06/22 19:50 Hematocrit 28.5 % (36-46) L 01/06/22 19:50 Hemoglobin 9.7 g/dL (12.0-16.0) L 01/06/22 19:50 Hepatitis B Surface Antigen Negative s/c (NEGATIVE) 06/15/21 07 :45 Hepatitis C Antibody Negative s/c (NEGATIVE) 06/15/21 07:45 Rubella Antibody 16.1 IU/mL (>15) 06/15/21 07:45 Varicella-Zoster IgG Antibody 187 index (Immune >165) 06/15/21 07:45 Glucose 1 Hour 106 mg/dL (76-139) 10/05/21 11:15 Group B Streptococcus (PCR) Neg for grp b strep 12/26/21 09:48 -: Chlamydia screen: negative, Gonorrhea screen: negative and Urine: negative Genetic Screens: Quad screen: Normal External Labs -: Urine: negative Prior (ies) Past Pregnancies Del. Date GA/Weeks Labor Lgth Wt Sex Route Outcome Anesthesia Place Delv Breastfeed Preg Comp Name 07/26/20 40.6 12 8 lb Female vaginal live - full term epidural IH w/ Dr. Perkins 1 week, then pumped 2 mos. none Melanie Delivery Date: 07/26/20 Last Updated by: Suri De Jesus R.N. Had Elliott's Palsy during . BP OK through but high in labor (took labetalol in labor). Pitocin augmentation. Back labor. Epidural wore off towards end. Evaluation Evaluation Baseline heart rate: 135 Variability: Moderate (11-25) monitor accelerations: Present Monitor Decelerations: Absent Contraction Frequency (minutes): 5 Uterine Contraction Intensity: Mild Status: Category l Dilation (cm): 4 Effacement (%): 80 station: -2 Position of cervix: posterior Consistency: soft PFSH Medical History Elliott's palsy affecting (~2019) Bleeding in early (~2019) Chicken pox (~1994) Medication management Migraine Vaginal delivery (~07/26/20) Surgical History [place] teeth extracted Family History Father Stroke Hypertension Aorta aneurysm Mother No problems noted. 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 sherman/christian: Taoism special sherman needs: No seatbelt use: always do you feel safe at home: Yes Smoking Status: Never smoker second hand exposure: No alcohol intake: former (pre- : occasional) substance use type: does not use during the past year weight has: remained stable well-balanced diet: about half the time (food aversions currently.) daily servings fruits/ve-1 caffeine: Yes (Tea: aware of limit.) Type(s) of exercise: walking (Daily walks when it's nice out. ) and regular exercise ([employer]el[employer], treadmill.) frequency: 3-4 times per week duration: 30-45 minutes/day Meds Home Medications and Allergies Home Medications Medication Instructions Recorded Confirmed Type prenat.vits,jacoby,uvk-ebti-okvcz 1 tab PO DAILY 11/19/19 01/06/22 History diphenhydramine HCl 50 mg capsule 50 mg PO BEDTIME 06/06/21 01/06/22 History ([employer] SleepGels) pyridoxine (vitamin B6) 50 mg 50 mg PO ONCE 06/06/21 01/06/22 History tablet labetalol 100 mg tablet 100 mg PO BID Hypertension #180 11/22/21 01/06/22 Rx tabs Allergies Allergy/AdvReac Type Severity Reaction Status Date / Time No Known Drug Allergies Allergy Verified 01/01/22 14:58 OB Exam Narrative Exam Narrative: Generally: Patient is sitting up in bed, no acute distress Cardiovascular: Regular rate and rhythm Lungs: Clear to auscultation bilaterally Fundal height: 39 cm Estimated weight: 7-1/2 lb Extremities: No edema, 1+ DTRs Objective Labs Result Diagrams: 01/06/22 19:50 Labs: Laboratory Results - last 24 hr 01/06/22 01/06/22 01/06/22 19:50 19:50 19:50 WBC 8.4 RBC 3.81 L Hgb 9.7 L Hct 28.5 L MCV 74.9 L MCH 25.5 L MCHC 34.0 RDW 15.1 H Plt Count 159 Neut % (Auto) 74.2 Lymph % (Auto) 17.7 L [place] % (Auto) 6.9 Eos % (Auto) 0.5 L Baso % (Auto) 0.7 Neut # (Auto) 6200 Lymph # (Auto) 1500 [place] # (Auto) 600 Eos # (Auto) 0 Baso # (Auto) 100 SARS-CoV-2 (PCR) Negative Blood Type B Positive Antibody Screen Negative Assessment and Plan Assessment and Plan Assessment and Plan narrative: Assessment: 31-year-old 2 para 1 at 39 weeks gestation with chronic hypertension Status post Cervidil last evening Favorable cervix Plan: Begin Pitocin augmentation Artificial rupture of membranes when able Epidural as necessary Expected management to spontaneous vaginal delivery Time Spent with Patient Total time spent with greater than 50% in coordination of care (as documented) at patient's floor/unit and/or counseling patient:: 15-24 minutes
[2022-01-07] MEDS: LABETALOL 100 MG TABLET PO ×2 (08:49→21:58)
[2022-01-07] MEDS: LACTATED RINGERS 1,000 ML 100 ML IV ×2 (10:25→13:10)
[2022-01-07] MEDS: OXYTOCIN PREMIX 30 UNIT/500 ML PLAST..BAG IV (10:26)
[2022-01-07] MEDS: FENT 2MCG/ML BUPIV 0.125% EPI 200 MCG/100 ML PLAST..BAG 14 MCG EPIDURAL (17:10)
[2022-01-07] MEDS: LIDOCAINE 2% INJ MDV 20 ML (19:55)
--- NOTE | 2022-01-07 20:11 | PM.OBPRVD ---
Events: Labor Induction and Other (Chronic hypertension) Labor & Delivery Delivery date: 01/07/22 Cervical ripening method: per Cervidil protocol Induction method: per pitocin protocol Delivery augmentation: rupture of membranes Delivery monitor: external FHT and external uterine Route of delivery: vacuum extraction Indication for instrumentation: nonreassuring FHR tracing (Deep variable decelerations with pushing) Episiotomy description: None L&D Laceration Description: Labial (Extension of previous labial laceration) Delivery repair: chromic Estimated blood loss (mL): 150 Anesthesia Type: Epidural Complications: None Narrative: Patient complete and pushed for 15 minutes. At 7:41 p.m., a live male delivered with vacuum assistance over an intact perineum in the KATY presentation. Vacuum was placed due to deep variable decelerations with pushing. There was a nuchal cord x1 which was reduced on the perineum. The remainder of the body delivered and was a tight fit but no shoulder dystocia. The was placed on mom's abdomen. The cord was double clamped and cut after it stopped pulsing. Pitocin was given in the IV fluids. The placenta delivered intact with a three-vessel cord at 7:49 p.m.. Fundus was massaged to firm. There was a previous right labial laceration that did not heal. And extension of this laceration occurred at the time of the delivery. The edges of the previous tear were cut with scissors to freshen. A running suture with 3-0 Vicryl on the anterior and posterior labia minora was performed to reapproximate, and hemostasis was achieved. Weight 8 lb 15.4 oz. Apgars 7 at 1 minute and 8 at 5 minutes. Epidural analgesia. . Mom and stable to recovery. Baby 1: gender: Male Presentation: vertex Position: Right Occiput Anterior Placenta delivery description: Spontaneous Cord Vessel Description: 3 Vessels, Nuchal Cord (X1), Reduced (On the perineum) and Clamped/Cut (After cord stopped pulsing) score (1 min): 7 score (5 min): 8 weight: 8 lb 15.4 oz Plan for aftercare: Routine care
[2022-01-07] MEDS: DERMOPLAST SPRAY 20% 60 ML 1 SPRAY TOP (21:57)
[2022-01-07 21:58] VITALS: BP 131/73; PULSE 116
[2022-01-07] MEDS: LANOLIN OINT 7 GM 1 APPLIC TOP (21:58)
[2022-01-08] MEDS: IBUPROFEN 600 MG TABLET PO ×2 (01:47→09:33)
[2022-01-08] MEDS: ACETAMINOPHEN 325 MG TABLET 650 MG PO ×2 (01:48→09:33)
[2022-01-08 06:58] LABS: Hematocrit 28.3 % (36-46); Hemoglobin 9.4 g/dL (12.0-16.0)
[2022-01-08 09:33] VITALS: BP 124/72; PULSE 68
[2022-01-08] MEDS: LABETALOL 100 MG TABLET PO (09:33)
[2022-01-08] MEDS: PRENATAL VIT,CALC/IRON/FOLIC 1 TABLET 1 TAB PO (09:37)
--- NOTE | 2022-01-08 13:07 | PM.OBDS.1 ---
Discharge Providers Provider Date of admission: 01/06/22 18:42 Discharge Date: 01/08/22 Primary care physician: Doctor Elvia MD Consults: 01/08/22 20:09 Consult to Burning Plant Operator Routine Comment: Discharge provider: Olimpia Ray MD Summary Hospital Course Date Patient Seen: 01/08/22 Time Patient Seen: 13:07 Diagnoses: Thirty-nine weeks gestation Chronic hypertension intolerance of labor Vacuum assisted vaginal delivery Right labial laceration repair Hospital Course: Patient is a 31-year-old 2 para 2 who presented at 39 weeks gestation for induction of labor due to chronic hypertension. She received Pitocin per protocol 2. Artificial rupture membranes was performed. She received an epidural for pain management. She progressed to complete dilation. Due to deep variable decelerations with pushing, a vacuum assisted vaginal delivery was performed. There was a nuchal cord x1 which was reduced on the perineum. Patient had a previous right labial tear, this extended during the delivery, and was repaired. Her course was unremarkable and she was discharged home on day # 1. Peripartum Data Delivery Method: Assisted Delivery (Vaginal) Laceration Description: Labial (Right) Episiotomy description: None Procedures: Pitocin induction of labor Artificial rupture of membranes Epidural analgesia Vacuum assisted vaginal delivery Right labial laceration repair complications: none Reed[place] 1: Gender: Male Disposition of : home Status at Discharge Cognitive/behavioral status at discharge: oriented Functional status at discharge: independent ambulation Overall status at discharge: patient is progressing back to baseline Time Spent with Patient Time attestation: Total time spent providing and/or coordinating discharge services: Time spent: Less than 30 minutes Objective Labs Result Diagrams: 01/08/22 06:45 Labs: Laboratory Results - last 24 hr 01/08/22 06:45 Hgb 9.4 L Hct 28.3 L Exam Vital Signs (past 8 hours): - 01/08/22 09:33 Pulse Rate 68 Blood Pressure 124/72 Narrative Exam Narrative: Generally: Patient is sitting up in bed, no acute distress Fundus: Firm at U -1 Extremities: Trace edema, negative Homans Discharge Plan Discharge Plan Patient Disposition: Home Provider Discharge Comment: Call with fever, chills, or bleeding vaginally more than a pad in an hour Ibuprofen 600 mg every 6 hours as needed for cramping or pain Tylenol 650 mg every 6 hours as needed Discharge orders & Medications Prescriptions: Continued labetalol 100 mg tablet 100 mg PO BID Qty: 180 2RF prenat.vits,jacoby,[id number] Tablet 1 tab PO DAILY Discontinued pyridoxine (vitamin B6) 50 mg tablet 50 mg PO ONCE diphenhydramine HCl [[employer] SleepGels] 50 mg capsule 50 mg PO BEDTIME Follow up/Referrals: Olimpia Ray MD [Physician] - 02/19/22 4:00 pm Diet/Activity/Treatments Diet: Regular Activity: Nothing in the vagina for 6 weeks Skin/Wound/Dressing Care Report to your healthcare provider any signs of infection, such as:: chills, fever, increased pain and unusual drainage Visit Report/Discharge Packet Instructions: DI for Labor and Delivery, Vaginal Discharge Data Primary Care Provider: Miscellaneous,Doctor
[2022-01-08 19:56] VITALS: BP 124/72; PULSE 68
== END 2022-01-08 16:50 | disposition home or self-care (01) | DRG 807 ==
PROVIDERS: Admitting Provider Obstetrics & Gynecology; Referring Provider Obstetrics & Gynecology; Visit Provider Obstetrics & Gynecology
DX: O10.02 Pre-existing essential hypertension complicating childbirth (principal); Z37.0 Single live birth; O76 Abnormality in fetal heart rate and rhythm complicating labor and delivery; O70.0 First degree perineal laceration during delivery; Z3A.39 39 weeks gestation of pregnancy; O69.81X0 Labor and delivery complicated by cord around neck, without compression, not applicable or unspecified; Z20.822 Contact with and (suspected) exposure to COVID-19
CPT/HCPCS: 01967; 36415; 59050; 59200; 59400; 85014; 85018; 85025; 86850; 86900; 86901; 87635; C9803; G0379; J2590; J3010

== ENCOUNTER → 2022-04-19 08:19 | Outpatient (CLI) | payer OTHER, SELFPAY | PROVIDERS: Visit Provider Nurse Practitioner Family | DX: J02.9 Acute pharyngitis, unspecified (principal) | CPT/HCPCS: 87070 ==

== ENCOUNTER → 2023-09-02 08:00 | Outpatient (CLI) | payer OTHER, SELFPAY ==
[2023-09-02 09:18] LABS: Add Manual Diff / Slide Review NO; Basophils Absolute Auto 100 /uL (0-100); Basophils Percent Auto 0.8 % (0-2); Eosinophils Absolute Auto 0 /uL (0-450); Eosinophils Percent Auto 0.7 % (2-4); Hematocrit 39.9 % (36-46); Hemoglobin 13.8 g/dL (12.0-16.0); Lymphocytes Absolute Auto 2300 /uL (1100-4500); Lymphocytes Percent Auto 34.8 % (25-40); Mean Corpuscular HGB Conc 34.5 % (30-36); Mean Corpuscular Hemoglobin 29.5 PG (26-34); Mean Corpuscular Volume 85.5 fL (80-100); Monocytes Absolute Auto 400 /uL (0-900); Monocytes Percent Auto 6.2 % (3-14); Neutrophils Absolute Auto 3700 /uL (1500-7000); Neutrophils Percent Auto 57.5 % (50-75); Platelet Count 346 X10^3/uL (150-400); Red Blood Cell Count 4.67 X10^6/uL (4.0-5.2); Red Cell Distribution Width 13.2 % (11.6-14.8); White Blood Cell Count 6.5 X10^3/uL (4.5-11.0)
[2023-09-02 09:45] LABS: HEMOLYSIS < 15 (0-50); Iron 84 ug/dL (37-170)
[2023-09-02 09:47] LABS: Alanine Aminotransferase 14 IU/L (<35); Albumin 4.2 g/dL (3.5-5.0); Albumin Globulin Ratio 1.2 (1.0-2.8); Alkaline Phosphatase 55 U/L (38-126); Aspartate Aminotransferase 17 IU/L (14-36); BUN Creatinine Ratio 18.2 (6-22); Bilirubin Total 0.4 mg/dL (0.2-1.3); Blood Urea Nitrogen 12 mg/dL (7-17); Calcium 9.4 mg/dL (8.4-10.2); Carbon Dioxide 27 mmol/L (22-32); Chloride 103 mmol/L (98-107); Cholesterol 244 mg/dL (140-199); Estimated Glomerular Filt Rate > 60 mL/min (>60); Globulin 3.6 g/dL (1.7-4.1); Glucose 86 mg/dL (70-100); HDL Cholesterol 56 mg/dL (40-60); HEMOLYSIS < 15 (0-50); LDL Cholesterol Calculated 155 mg/dL (<100); Potassium 4.6 mmol/L (3.4-5.1); Sodium 137 mmol/L (137-145); Total Protein 7.8 g/dL (6.3-8.2); Triglycerides 163 mg/dL (35-150)
[2023-09-02 09:57] LABS: Percent Iron Saturation 26 % (15-50); Total Iron Binding Capacity 317 ug/dL (265-497)
[2023-09-02 10:01] LABS: Transferrin 275 mg/dL (206-381)
== END ==
PROVIDERS: PCP Family Medicine; Referring Provider Family Medicine; Visit Provider Family Medicine
DX: Z00.00 Encounter for general adult medical examination without abnormal findings (principal); I10 Essential (primary) hypertension; D64.9 Anemia, unspecified
CPT/HCPCS: 36415; 80053; 80061; 83540; 83550; 85025

== ENCOUNTER → 2023-10-02 07:13 | Outpatient (CLI) | payer OTHER, SELFPAY ==
[2023-10-02 08:06] LABS: Influenza A - CEPHEID Flu A NEGATIVE (NEGATIVE); Influenza B - CEPHEID Flu B NEGATIVE (NEGATIVE); Respiratory Syncytial Virus Negative (Negative)
[2023-10-02 08:08] LABS: COVID-19 CEPHEID 4-PLEX PCR Negative (Negative)
== END ==
PROVIDERS: PCP Family Medicine; Visit Provider Nurse Practitioner Family
DX: R05.9 Cough, unspecified (principal)
CPT/HCPCS: 0241U

== ENCOUNTER → 2023-10-13 17:07 | Outpatient (CLI) | payer OTHER, SELFPAY ==
[2023-10-13 18:31] LABS: TSH w/ Reflex to FT4 1.99 uIU/mL (0.47-4.68)
== END ==
PROVIDERS: PCP Family Medicine; Referring Provider Family Medicine; Visit Provider Family Medicine
DX: E78.5 Hyperlipidemia, unspecified (principal); R03.0 Elevated blood-pressure reading, without diagnosis of hypertension
CPT/HCPCS: 36415; 84443

== ENCOUNTER → 2024-06-17 15:11 | Outpatient (CLI) | payer OTHER, SELFPAY ==
[2024-06-17 16:58] LABS: Influenza A - CEPHEID Flu A NEGATIVE (NEGATIVE); Influenza B - CEPHEID Flu B NEGATIVE (NEGATIVE); Respiratory Syncytial Virus Negative (Negative)
[2024-06-17 17:21] LABS: COVID-19 CEPHEID 4-PLEX PCR Negative (Negative)
== END ==
PROVIDERS: PCP Family Medicine; Visit Provider Nurse Practitioner Family
DX: J02.9 Acute pharyngitis, unspecified (principal); R05.1 Acute cough; R50.9 Fever, unspecified; R53.83 Other fatigue
CPT/HCPCS: 0241U; 87070

== ENCOUNTER → 2024-08-04 07:33 | Outpatient (CLI) | payer OTHER, SELFPAY ==
[2024-08-04 10:40] LABS: Influenza A - CEPHEID Flu A NEGATIVE (NEGATIVE); Influenza B - CEPHEID Flu B NEGATIVE (NEGATIVE); Respiratory Syncytial Virus Negative (Negative)
[2024-08-04 10:41] LABS: COVID-19 CEPHEID 4-PLEX PCR Negative (Negative)
== END ==
PROVIDERS: PCP Family Medicine; Visit Provider Student in an Organized Health Care Education/Training Program
DX: R05.9 Cough, unspecified (principal)
CPT/HCPCS: 0241U